=== PATIENT | female | born 1930 | race Caucasian/White ===

== ENCOUNTER 2018-12-21 05:04 | Inpatient (IN) ==
[2018-12-21] MEDS ORDERED: DILTIAZEM 50 MG/10 ML VIAL IV STA ×2 (06:15→07:25)
[2018-12-21] MEDS ORDERED: DILTIAZEM 50 MG/10 ML VIAL IV ONE (06:17)
[2018-12-21] MEDS ORDERED: dilTIAZem Drip 125 MG/125 ML PREMIX IV SCH (06:30)
[2018-12-21 06:36] LABS: CKMB % 6.7 %; Calcium 8.6 MG/DL (8.5-10.1); Osmolality,Calculated 271.5 MOS/KG (273-304); Troponin I 0.63 NG/ML (0.00-0.045)
[2018-12-21 06:40] LABS: Basophils % 0.4 % (0.0-0.8); Eosinophils % 0.4 % (0.00-10.9); Hematocrit 36.2 VOL% (35.7-47.0); Hemoglobin 11.7 GM/DL (12.0-16.0); Immature Granulocytes % 0.4 %; Immature Granulocytes Absolute 0.04 #; Lymphocytes # 2.3 10*3/uL (1.4-4.0); Lymphocytes % 24.5 % (21.3-54.2); Mean Corpuscular HGB Conc 32.3 GM/DL (32-36); Mean Corpuscular Volume 93.3 FL (87-102); Mean Platelet Volume 11.4 FL (9.6-12.0); Monocytes % 7.4 % (1.7-12.7); Neutrophils % 66.9 % (38.7-73.9); Platelet Count 257 T/CUMM (130-400); Red Blood Count 3.88 MC/CUMM (3.8-5.5); Red Cell Distribution Width 14.1 % (9.3-17.3); White Blood Count 9.3 T/CUMM (4-12)
[2018-12-21] MEDS ORDERED: NITROGLYCERIN SL 0.4 MG TABLET SL PRN (07:24)
[2018-12-21] MEDS ORDERED: ONDANSETRON 4 MG/2 ML VIAL IV STA (07:25)
[2018-12-21] MEDS ORDERED: MORPHINE 4 MG/1 ML VIAL IV STA (07:25)
[2018-12-21 09:33] LABS: Risk Ratio 2.63; Thyroid Stimulating Hormone 1.37 uIU/ml (0.358-3.74); VLDL CHOLESTEROL 21.8 MG/DL
[2018-12-21 10:08] LABS: Troponin I 0.698 NG/ML (0.00-0.045)
[2018-12-21] MEDS: cefTRIAXone 1,000 MG in SYRINGE 1 EACH IV SCH ×3 (11:40→12:02)
[2018-12-21] MEDS: AZITHROMYCIN INJ 500 MG in SODIUM CHLORIDE 0.9% 250 ML IV SCH (11:45)
[2018-12-21] MEDS ORDERED: FUROSEMIDE 40 MG/4 ML VIAL IV ONE (11:45)
[2018-12-21] MEDS ORDERED: KETOROLAC 30 MG/1 ML VIAL IV ONE (12:06)
[2018-12-21] MEDS: APIXABAN 5 MG TABLET PO SCH ×2 (12:48→21:40)
[2018-12-21] MEDS: ACETAMINOPHEN 325 MG TABLET PO SCH ×2 (12:49→21:40)
[2018-12-21] MEDS: ONDANSETRON 4 MG/2 ML VIAL IV PRN ×2 (12:52→16:20)
[2018-12-21 12:54] LABS: CKMB % 7.3 %
[2018-12-21 12:55] LABS: Troponin I 0.898 NG/ML (0.00-0.045)
[2018-12-21] MEDS: ALBUTEROL/IPRATROPIUM 3 ML NEB RESP TX SCH ×2 (14:00→18:13)
[2018-12-21] MEDS: GABAPENTIN 100 MG CAPSULE PO SCH ×2 (16:17→21:40)
[2018-12-21] MEDS: FUROSEMIDE 40 MG/4 ML VIAL IV SCH (16:25)
[2018-12-21] MEDS ORDERED: PROMETHAZINE 25 MG/1 ML VIAL IM PRN (16:31)
[2018-12-21] MEDS ORDERED: LISINOPRIL/HCTZ 10-12.5 MG TABLET PO SCH (17:00)
[2018-12-21] MEDS: CARVEDILOL 3.125 MG TABLET PO SCH ×2 (18:18→21:42)
[2018-12-22] MEDS: ALBUTEROL/IPRATROPIUM 3 ML NEB RESP TX SCH ×4 (00:22→19:40)
[2018-12-22] MEDS: CARVEDILOL 3.125 MG TABLET PO SCH ×4 (01:49→17:46)
[2018-12-22 05:13] LABS: Basophils % 0.2 % (0.0-0.8); Eosinophils # 0.1 10*3/uL (0.0-0.87); Eosinophils % 0.8 % (0.00-10.9); Hematocrit 33.7 VOL% (35.7-47.0); Hemoglobin 10.6 GM/DL (12.0-16.0); Immature Granulocytes % 0.2 %; Immature Granulocytes Absolute 0.02 #; Lymphocytes # 3.1 10*3/uL (1.4-4.0); Lymphocytes % 36.4 % (21.3-54.2); Mean Corpuscular HGB Conc 31.5 GM/DL (32-36); Mean Corpuscular Volume 96.6 FL (87-102); Mean Platelet Volume 10.8 FL (9.6-12.0); Monocytes % 9.8 % (1.7-12.7); Neutrophils % 52.6 % (38.7-73.9); Platelet Count 193 T/CUMM (130-400); Red Blood Count 3.49 MC/CUMM (3.8-5.5); Red Cell Distribution Width 14.4 % (9.3-17.3); White Blood Count 8.6 T/CUMM (4-12)
[2018-12-22 05:15] LABS: INR 1.1; PT Patient Result 12.2 SECS
[2018-12-22] MEDS ORDERED: dilTIAZem Drip 125 MG/125 ML PREMIX IV ONE (05:23)
[2018-12-22] MEDS: dilTIAZem Drip 125 MG/125 ML PREMIX IV SCH ×2 (05:30→06:30)
[2018-12-22] MEDS ORDERED: FUROSEMIDE 40 MG/4 ML VIAL IV ONE (05:31)
[2018-12-22 05:36] LABS: Calcium 8.3 MG/DL (8.5-10.1)
[2018-12-22] MEDS ORDERED: AMIODARONE 150 MG/3 ML VIAL ONE (06:02)
[2018-12-22] MEDS ORDERED: AMIODARONE 450 MG/9 ML VIAL IV ONE (06:03)
[2018-12-22] MEDS ORDERED: AMIODARONE INJ 150 MG in DEXTROSE 5% 100 ML IV ONE (06:06)
[2018-12-22] MEDS ORDERED: ETOMIDATE 20 MG/10 ML VIAL IV ONE ×2 (06:27→06:33)
[2018-12-22] MEDS ORDERED: VECURONIUM 10 MG VIAL IV ONE ×2 (06:27→06:36)
[2018-12-22] MEDS ORDERED: PROPOFOL 1,000 MG/100 ML BOTTLE IV SCH (07:00)
[2018-12-22 07:48] LABS: ABG Base Excess -6.6 MMOL/L (-2.5-2.5); ABG Oxygen Saturation 95.4 % (95-100); ABG PCO2 42.2 MM HG (35-48); ABG PH 7.281 (7.35-7.45); ABG PO2 90.5 MM HG (80-95); ABG TCO2 18.1 MMOL/L (23-27)
[2018-12-22 08:41] LABS: Amorphous Crystals,Urine Few /HPF (Few); Apearance,Urine Slightly Hazy (Clear); Bacteria,Urine Few /HPF (Few); Bilirubin,Urine Negative (Negative); Blood, Urine Large mg/dL (Negative); Glucose,Urine (UA) Negative (Negative); Hyaline Casts,Urine 8 /LPF (0-3); Ketones,Urine Negative (Negative); Mucus,Urine Occasional /LPF (Occasional); Nitrite,Urine Negative (Negative); Protein,Urine 30 MG/DL; RBC,Urine 337 /HPF (0-4); Squamous Epithelial Cell,Urine Occasional /HPF (0-10); Urine Color Yellow (Yellow); Urine Specific Gravity 1.013 (1.001-1.035); Urine Urobilinogen < 2.0 EU/DL (0.2-1.0); WBC,Urine 12 /HPF (0-6)
[2018-12-22] MEDS ORDERED: methylPREDNISolone 4 MG TABLET PO SCH (09:00)
[2018-12-22] MEDS: PANTOPRAZOLE 40 MG TABLET PO SCH (10:27)
[2018-12-22] MEDS: GABAPENTIN 100 MG CAPSULE PO SCH ×3 (10:27→21:30)
[2018-12-22] MEDS: APIXABAN 5 MG TABLET PO SCH ×2 (10:28→21:30)
[2018-12-22] MEDS: FUROSEMIDE 40 MG/4 ML VIAL IV SCH ×2 (11:11→16:01)
[2018-12-22] MEDS: SPIRONOLACTONE 25 MG TABLET PO SCH ×2 (12:16→21:30)
[2018-12-22] MEDS: cefTRIAXone 1,000 MG in SYRINGE 1 EACH IV SCH (12:16)
[2018-12-22] MEDS: MIDAZOLAM 100 MG in SODIUM CHLORIDE 0.9% 80 ML IV PRN (12:16)
[2018-12-22] MEDS: fentaNYL INJ 1,250 MCG in SODIUM CHLORIDE 0.9% 225 ML IV PRN (12:18)
[2018-12-22] MEDS: AZITHROMYCIN INJ 500 MG in SODIUM CHLORIDE 0.9% 250 ML IV SCH (13:27)
[2018-12-22] MEDS: ASPIRIN CHEW 81 MG TABLET PO SCH (13:45)
[2018-12-22] MEDS: AMIODARONE 200 MG TABLET PO SCH ×2 (13:45→20:48)
[2018-12-22] MEDS: PHENYLEPHRINE DRIP 40 MG/250 ML PREMIX IV PRN (17:32)
[2018-12-22] MEDS: methylPREDNISolone SOD SUC 40 MG/1 ML VIAL IV SCH (18:03)
[2018-12-22] MEDS: AMIODARONE INJ 450 MG in DEXTROSE 5% 241 ML IV SCH (18:48)
[2018-12-23] MEDS: ALBUTEROL/IPRATROPIUM 3 ML NEB RESP TX SCH ×4 (01:12→20:23)
[2018-12-23] MEDS: methylPREDNISolone SOD SUC 40 MG/1 ML VIAL IV SCH ×3 (03:38→17:45)
[2018-12-23 04:09] LABS: ABG Base Excess -0.7 MMOL/L (-2.5-2.5); ABG HCO3 23.9 MMOL/L (20-26); ABG Oxygen Saturation 99.8 % (95-100); ABG PCO2 32.4 MM HG (35-48); ABG PH 7.451 (7.35-7.45); ABG TCO2 20.2 MMOL/L (23-27); Pt O2 Delivery Device Ventilator
[2018-12-23 05:40] LABS: Basophils % 0.2 % (0.0-0.8); Eosinophils % 0.2 % (0.00-10.9); Hemoglobin 11.3 GM/DL (12.0-16.0); Immature Granulocytes % 0.5 %; Immature Granulocytes Absolute 0.07 #; Lymphocytes # 2.6 10*3/uL (1.4-4.0); Lymphocytes % 20.4 % (21.3-54.2); Mean Corpuscular HGB Conc 31.4 GM/DL (32-36); Mean Corpuscular Volume 95.7 FL (87-102); Mean Platelet Volume 11.5 FL (9.6-12.0); Monocytes % 9.9 % (1.7-12.7); Neutrophils % 68.8 % (38.7-73.9); Platelet Count 189 T/CUMM (130-400); Red Blood Count 3.76 MC/CUMM (3.8-5.5); Red Cell Distribution Width 14.5 % (9.3-17.3); White Blood Count 12.8 T/CUMM (4-12)
[2018-12-23 06:11] LABS: Calcium 8.2 MG/DL (8.5-10.1); Osmolality,Calculated 275.1 MOS/KG (273-304)
[2018-12-23] MEDS ORDERED: DILTIAZEM 25 MG/5 ML VIAL IV ONE (08:10)
[2018-12-23 08:30] LABS: Troponin I 0.769 NG/ML (0.00-0.045)
[2018-12-23] MEDS ORDERED: DILTIAZEM 50 MG/10 ML VIAL IV STA (08:41)
[2018-12-23] MEDS: AZITHROMYCIN INJ 500 MG in SODIUM CHLORIDE 0.9% 250 ML IV SCH (09:41)
[2018-12-23] MEDS: ASPIRIN CHEW 81 MG TABLET PO SCH (09:42)
[2018-12-23] MEDS: APIXABAN 5 MG TABLET PO SCH ×2 (09:42→22:09)
[2018-12-23] MEDS: AMIODARONE 200 MG TABLET PO SCH ×2 (09:42→22:09)
[2018-12-23] MEDS: PANTOPRAZOLE 40 MG TABLET PO SCH (09:42)
[2018-12-23] MEDS: GABAPENTIN 100 MG CAPSULE PO SCH ×3 (09:42→22:09)
[2018-12-23] MEDS: SPIRONOLACTONE 25 MG TABLET PO SCH (09:42)
[2018-12-23] MEDS: AMIODARONE INJ 450 MG in DEXTROSE 5% 241 ML IV SCH (09:43)
[2018-12-23] MEDS: FUROSEMIDE 40 MG/4 ML VIAL IV SCH ×2 (09:43→16:50)
[2018-12-23] MEDS: cefTRIAXone 1,000 MG in SYRINGE 1 EACH IV SCH (11:57)
[2018-12-23] MEDS: PHENYLEPHRINE DRIP 40 MG/250 ML PREMIX IV PRN (18:07)
[2018-12-24] MEDS: ALBUTEROL/IPRATROPIUM 3 ML NEB RESP TX SCH ×4 (00:59→19:47)
[2018-12-24] MEDS: methylPREDNISolone SOD SUC 40 MG/1 ML VIAL IV SCH ×4 (02:55→21:13)
[2018-12-24 04:33] LABS: ABG Base Excess 2.1 MMOL/L (-2.5-2.5); ABG HCO3 24.7 MMOL/L (20-26); ABG Oxygen Saturation 99.2 % (95-100); ABG PCO2 31.7 MM HG (35-48); ABG PH 7.509 (7.35-7.45); ABG PO2 292.7 MM HG (80-95); ABG TCO2 25.6 MMOL/L (23-27)
[2018-12-24 05:01] LABS: Hemoglobin 10.9 GM/DL (12.0-16.0); Immature Granulocytes % 0.5 %; Immature Granulocytes Absolute 0.05 #; Lymphocytes # 1.2 10*3/uL (1.4-4.0); Lymphocytes % 11.2 % (21.3-54.2); Mean Corpuscular Volume 91.4 FL (87-102); Mean Platelet Volume 10.9 FL (9.6-12.0); Monocytes % 4.7 % (1.7-12.7); Neutrophils % 83.6 % (38.7-73.9); Platelet Count 264 T/CUMM (130-400); Red Blood Count 3.61 MC/CUMM (3.8-5.5); Red Cell Distribution Width 14.5 % (9.3-17.3); White Blood Count 10.8 T/CUMM (4-12)
[2018-12-24 05:31] LABS: Calcium 8.1 MG/DL (8.5-10.1); Osmolality,Calculated 285.7 MOS/KG (273-304)
[2018-12-24] MEDS ORDERED: POTASSIUM CHLORIDE 20 MEQ/15 ML UDCUP PER TUBE ONE (07:40)
[2018-12-24] MEDS: FUROSEMIDE 40 MG/4 ML VIAL IV SCH ×2 (08:55→15:45)
[2018-12-24] MEDS: APIXABAN 5 MG TABLET PO SCH ×2 (08:59→21:13)
[2018-12-24] MEDS: ASPIRIN CHEW 81 MG TABLET PO SCH (08:59)
[2018-12-24] MEDS: GABAPENTIN 100 MG CAPSULE PO SCH ×3 (09:01→21:13)
[2018-12-24] MEDS: SPIRONOLACTONE 25 MG TABLET PO SCH (09:01)
[2018-12-24] MEDS: PANTOPRAZOLE 40 MG TABLET PO SCH (09:02)
[2018-12-24] MEDS: AZITHROMYCIN INJ 500 MG in SODIUM CHLORIDE 0.9% 250 ML IV SCH (09:04)
[2018-12-24] MEDS: AMIODARONE 200 MG TABLET PO SCH ×2 (09:05→21:13)
[2018-12-24] MEDS: POTASSIUM CHLORIDE 20 MEQ/15 ML UDCUP PER TUBE SCH (09:23)
[2018-12-24] MEDS: LANSOPRAZOLE ODT 30 MG TABLET PER TUBE SCH (09:24)
[2018-12-24] MEDS ORDERED: GLUCAGON 1 MG VIAL IM PRN (13:04)
[2018-12-24] MEDS ORDERED: DEXTROSE 50% 25 GM/50 ML SYRINGE IV PRN (13:04)
[2018-12-24] MEDS: cefTRIAXone 1,000 MG in SYRINGE 1 EACH IV SCH (13:25)
[2018-12-24] MEDS: MIDAZOLAM 100 MG in SODIUM CHLORIDE 0.9% 80 ML IV PRN (13:45)
[2018-12-24] MEDS: MEROPENEM 500 MG in SODIUM CHLORIDE 0.9% 100 ML IV SCH (15:44)
[2018-12-24] MEDS ORDERED: AMIODARONE INJ 150 MG in DEXTROSE 5% 100 ML IV PRN (16:13)
[2018-12-24] MEDS: AMIODARONE INJ 450 MG in DEXTROSE 5% 241 ML IV SCH (16:16)
[2018-12-24] MEDS: PHENYLEPHRINE DRIP 40 MG/250 ML PREMIX IV PRN (20:50)
[2018-12-25] MEDS: ALBUTEROL/IPRATROPIUM 3 ML NEB RESP TX SCH ×4 (01:00→19:48)
[2018-12-25] MEDS: MEROPENEM 500 MG in SODIUM CHLORIDE 0.9% 100 ML IV SCH ×2 (02:45→15:15)
[2018-12-25 02:53] LABS: ABG Base Excess 2.8 MMOL/L (-2.5-2.5); ABG Oxygen Saturation 99.7 % (95-100); ABG PCO2 33.2 MM HG (35-48); ABG PH 7.497 (7.35-7.45); ABG TCO2 22.9 MMOL/L (23-27); Allen Test Positive; Pt O2 Delivery Device Ventilator
[2018-12-25 06:25] LABS: Basophils % 0.1 % (0.0-0.8); Hematocrit 35.2 VOL% (35.7-47.0); Hemoglobin 10.9 GM/DL (12.0-16.0); Immature Granulocytes % 0.5 %; Immature Granulocytes Absolute 0.05 #; Lymphocytes # 1.1 10*3/uL (1.4-4.0); Lymphocytes % 9.6 % (21.3-54.2); Mean Corpuscular Volume 95.4 FL (87-102); Mean Platelet Volume 10.7 FL (9.6-12.0); Monocytes % 4.8 % (1.7-12.7); Platelet Count 283 T/CUMM (130-400); Red Blood Count 3.69 MC/CUMM (3.8-5.5); Red Cell Distribution Width 14.9 % (9.3-17.3)
[2018-12-25 06:36] LABS: Calcium 8.5 MG/DL (8.5-10.1); Osmolality,Calculated 293.7 MOS/KG (273-304)
[2018-12-25] MEDS: SPIRONOLACTONE 25 MG TABLET PO SCH (08:33)
[2018-12-25] MEDS: AMIODARONE 200 MG TABLET PO SCH ×2 (08:33→21:26)
[2018-12-25] MEDS: GABAPENTIN 100 MG CAPSULE PO SCH ×3 (08:34→21:26)
[2018-12-25] MEDS: LANSOPRAZOLE ODT 30 MG TABLET PER TUBE SCH (08:34)
[2018-12-25] MEDS: POTASSIUM CHLORIDE 20 MEQ/15 ML UDCUP PER TUBE SCH (08:34)
[2018-12-25] MEDS: APIXABAN 5 MG TABLET PO SCH ×2 (08:34→21:26)
[2018-12-25] MEDS: ASPIRIN CHEW 81 MG TABLET PO SCH (08:34)
[2018-12-25] MEDS: FUROSEMIDE 40 MG/4 ML VIAL IV SCH ×2 (08:38→15:15)
[2018-12-25] MEDS: methylPREDNISolone SOD SUC 40 MG/1 ML VIAL IV SCH ×2 (08:39→21:26)
[2018-12-25] MEDS: MIDAZOLAM 100 MG in SODIUM CHLORIDE 0.9% 80 ML IV PRN (14:35)
[2018-12-26] MEDS: ALBUTEROL/IPRATROPIUM 3 ML NEB RESP TX SCH ×4 (01:06→20:46)
[2018-12-26] MEDS: MEROPENEM 500 MG in SODIUM CHLORIDE 0.9% 100 ML IV SCH ×2 (02:36→14:04)
[2018-12-26 04:25] LABS: ABG HCO3 27.2 MMOL/L (20-26); ABG Oxygen Saturation 99.2 % (95-100); ABG PCO2 32.3 MM HG (35-48); ABG PH 7.543 (7.35-7.45); ABG PO2 192.2 MM HG (80-95); ABG TCO2 28.2 MMOL/L (23-27); Allen Test Positive; Pt O2 Delivery Device Ventilator
[2018-12-26 05:17] LABS: Basophils % 0.1 % (0.0-0.8); Hematocrit 35.7 VOL% (35.7-47.0); Immature Granulocytes % 0.6 %; Immature Granulocytes Absolute 0.08 #; Lymphocytes # 1.2 10*3/uL (1.4-4.0); Lymphocytes % 8.9 % (21.3-54.2); Mean Corpuscular HGB Conc 30.8 GM/DL (32-36); Mean Corpuscular Volume 95.7 FL (87-102); Mean Platelet Volume 10.4 FL (9.6-12.0); Neutrophils % 86.4 % (38.7-73.9); Platelet Count 272 T/CUMM (130-400); Red Blood Count 3.73 MC/CUMM (3.8-5.5); Red Cell Distribution Width 14.9 % (9.3-17.3); White Blood Count 13.1 T/CUMM (4-12)
[2018-12-26 05:29] LABS: INR 1.2; Partial Thromboplastin Time 27.8 SECS (0-40)
[2018-12-26 05:32] LABS: Calcium 8.5 MG/DL (8.5-10.1); Osmolality,Calculated 299.5 MOS/KG (273-304)
[2018-12-26 05:35] LABS: Prealbumin 26.4 MG/DL (20-40)
[2018-12-26] MEDS: methylPREDNISolone SOD SUC 40 MG/1 ML VIAL IV SCH ×2 (11:02→21:28)
[2018-12-26] MEDS: FUROSEMIDE 40 MG/4 ML VIAL IV SCH ×2 (11:02→16:20)
[2018-12-26] MEDS: LANSOPRAZOLE ODT 30 MG TABLET PER TUBE SCH (11:03)
[2018-12-26] MEDS: AMIODARONE 200 MG TABLET PO SCH ×2 (11:03→21:28)
[2018-12-26] MEDS: GABAPENTIN 100 MG CAPSULE PO SCH ×3 (11:03→21:28)
[2018-12-26] MEDS: APIXABAN 5 MG TABLET PO SCH ×2 (11:03→21:28)
[2018-12-26] MEDS: SPIRONOLACTONE 25 MG TABLET PO SCH (11:03)
[2018-12-26] MEDS: ASPIRIN CHEW 81 MG TABLET PO SCH (11:03)
[2018-12-26] MEDS: POTASSIUM CHLORIDE 20 MEQ/15 ML UDCUP PER TUBE SCH (11:04)
[2018-12-26] MEDS: fentaNYL INJ 1,250 MCG in SODIUM CHLORIDE 0.9% 225 ML IV PRN (11:55)
[2018-12-26] MEDS: MIDAZOLAM 100 MG in SODIUM CHLORIDE 0.9% 80 ML IV PRN (16:24)
[2018-12-27] MEDS: ALBUTEROL/IPRATROPIUM 3 ML NEB RESP TX SCH ×4 (02:23→18:50)
[2018-12-27] MEDS: MEROPENEM 500 MG in SODIUM CHLORIDE 0.9% 100 ML IV SCH ×2 (02:39→13:47)
[2018-12-27 04:09] LABS: ABG Base Excess 6.2 MMOL/L (-2.5-2.5); ABG HCO3 30.1 MMOL/L (20-26); ABG Oxygen Saturation 99.9 % (95-100); ABG PCO2 39.3 MM HG (35-48); ABG TCO2 26.4 MMOL/L (23-27)
[2018-12-27 06:14] LABS: Hematocrit 33.4 VOL% (35.7-47.0); Hemoglobin 10.3 GM/DL (12.0-16.0); Immature Granulocytes % 0.9 %; Immature Granulocytes Absolute 0.09 #; Lymphocytes # 0.7 10*3/uL (1.4-4.0); Lymphocytes % 7.3 % (21.3-54.2); Mean Corpuscular HGB Conc 30.8 GM/DL (32-36); Mean Corpuscular Volume 96.8 FL (87-102); Mean Platelet Volume 10.4 FL (9.6-12.0); Monocytes % 5.8 % (1.7-12.7); Platelet Count 209 T/CUMM (130-400); Red Blood Count 3.45 MC/CUMM (3.8-5.5); Red Cell Distribution Width 14.8 % (9.3-17.3)
[2018-12-27 06:30] LABS: Calcium 8.3 MG/DL (8.5-10.1); Osmolality,Calculated 305.1 MOS/KG (273-304)
[2018-12-27] MEDS: GABAPENTIN 100 MG CAPSULE PO SCH ×3 (08:32→21:40)
[2018-12-27] MEDS: POTASSIUM CHLORIDE 20 MEQ/15 ML UDCUP PER TUBE SCH (08:32)
[2018-12-27] MEDS: APIXABAN 5 MG TABLET PO SCH ×2 (08:33→21:40)
[2018-12-27] MEDS: AMIODARONE 200 MG TABLET PO SCH ×2 (08:33→21:40)
[2018-12-27] MEDS: SPIRONOLACTONE 25 MG TABLET PO SCH (08:33)
[2018-12-27] MEDS: ASPIRIN CHEW 81 MG TABLET PO SCH (08:33)
[2018-12-27] MEDS: LANSOPRAZOLE ODT 30 MG TABLET PER TUBE SCH (08:34)
[2018-12-27] MEDS: FUROSEMIDE 40 MG/4 ML VIAL IV SCH ×2 (08:34→15:47)
[2018-12-27] MEDS: methylPREDNISolone SOD SUC 40 MG/1 ML VIAL IV SCH ×2 (08:41→21:40)
[2018-12-28] MEDS: ALBUTEROL/IPRATROPIUM 3 ML NEB RESP TX SCH ×4 (01:48→20:00)
[2018-12-28] MEDS: MEROPENEM 500 MG in SODIUM CHLORIDE 0.9% 100 ML IV SCH ×2 (02:10→15:59)
[2018-12-28] MEDS: MIDAZOLAM 100 MG in SODIUM CHLORIDE 0.9% 80 ML IV PRN ×2 (02:11→22:40)
[2018-12-28 04:39] LABS: ABG Base Excess 9.5 MMOL/L (-2.5-2.5); ABG HCO3 32.5 MMOL/L (20-26); ABG Oxygen Saturation 98.7 % (95-100); ABG PCO2 37.6 MM HG (35-48); ABG PH 7.554 (7.35-7.45); ABG PO2 159.4 MM HG (80-95); ABG TCO2 33.6 MMOL/L (23-27); Allen Test Positive; Pt O2 Delivery Device Ventilator
[2018-12-28 05:26] LABS: Basophils % 0.1 % (0.0-0.8); Hematocrit 34.7 VOL% (35.7-47.0); Hemoglobin 10.5 GM/DL (12.0-16.0); Immature Granulocytes Absolute 0.11 #; Lymphocytes # 0.8 10*3/uL (1.4-4.0); Lymphocytes % 7.5 % (21.3-54.2); Mean Corpuscular HGB Conc 30.3 GM/DL (32-36); Mean Corpuscular Volume 98.9 FL (87-102); Mean Platelet Volume 10.5 FL (9.6-12.0); Monocytes % 6.5 % (1.7-12.7); Neutrophils % 84.9 % (38.7-73.9); Platelet Count 207 T/CUMM (130-400); Red Blood Count 3.51 MC/CUMM (3.8-5.5); Red Cell Distribution Width 14.8 % (9.3-17.3); White Blood Count 11.1 T/CUMM (4-12)
[2018-12-28 05:37] LABS: Calcium 8.2 MG/DL (8.5-10.1)
[2018-12-28] MEDS: FUROSEMIDE 40 MG/4 ML VIAL IV SCH ×2 (07:54→16:00)
[2018-12-28] MEDS: methylPREDNISolone SOD SUC 40 MG/1 ML VIAL IV SCH ×2 (08:02→22:00)
[2018-12-28] MEDS: GABAPENTIN 100 MG CAPSULE PO SCH ×3 (08:03→21:45)
[2018-12-28] MEDS: SPIRONOLACTONE 25 MG TABLET PO SCH (08:04)
[2018-12-28] MEDS: APIXABAN 5 MG TABLET PO SCH ×2 (08:04→21:45)
[2018-12-28] MEDS: ASPIRIN CHEW 81 MG TABLET PO SCH (08:04)
[2018-12-28] MEDS: AMIODARONE 200 MG TABLET PO SCH ×2 (08:04→21:45)
[2018-12-28] MEDS: LANSOPRAZOLE ODT 30 MG TABLET PER TUBE SCH (08:05)
[2018-12-28] MEDS: POTASSIUM CHLORIDE 20 MEQ/15 ML UDCUP PER TUBE SCH (08:05)
[2018-12-28] MEDS ORDERED: METOPROLOL TARTRATE 5 MG/5 ML VIAL IV ONE (08:44)
[2018-12-28] MEDS: CARVEDILOL 3.125 MG TABLET PO SCH ×3 (09:11→21:45)
[2018-12-29] MEDS: ALBUTEROL/IPRATROPIUM 3 ML NEB RESP TX SCH ×4 (01:09→19:16)
[2018-12-29] MEDS: MEROPENEM 500 MG in SODIUM CHLORIDE 0.9% 100 ML IV SCH ×2 (02:50→13:18)
[2018-12-29] MEDS: CARVEDILOL 3.125 MG TABLET PO SCH ×4 (03:53→20:10)
[2018-12-29 04:05] LABS: Basophils % 0.1 % (0.0-0.8); Hematocrit 31.6 VOL% (35.7-47.0); Hemoglobin 9.8 GM/DL (12.0-16.0); Immature Granulocytes % 0.7 %; Immature Granulocytes Absolute 0.09 #; Lymphocytes # 1.6 10*3/uL (1.4-4.0); Lymphocytes % 13.1 % (21.3-54.2); Mean Corpuscular Volume 98.1 FL (87-102); Mean Platelet Volume 10.4 FL (9.6-12.0); Monocytes % 8.2 % (1.7-12.7); Neutrophils % 77.9 % (38.7-73.9); Platelet Count 173 T/CUMM (130-400); Red Blood Count 3.22 MC/CUMM (3.8-5.5); Red Cell Distribution Width 14.6 % (9.3-17.3); White Blood Count 12.4 T/CUMM (4-12)
[2018-12-29 04:28] LABS: Calcium 8.2 MG/DL (8.5-10.1); Osmolality,Calculated 305.1 MOS/KG (273-304)
[2018-12-29] MEDS: POTASSIUM CHLORIDE 20 MEQ/15 ML UDCUP PER TUBE SCH (08:09)
[2018-12-29] MEDS: AMIODARONE 200 MG TABLET PO SCH ×2 (08:09→20:21)
[2018-12-29] MEDS: GABAPENTIN 100 MG CAPSULE PO SCH ×3 (08:09→20:22)
[2018-12-29] MEDS: LANSOPRAZOLE ODT 30 MG TABLET PER TUBE SCH (08:10)
[2018-12-29] MEDS: ASPIRIN CHEW 81 MG TABLET PO SCH (08:10)
[2018-12-29] MEDS: SPIRONOLACTONE 25 MG TABLET PO SCH (08:10)
[2018-12-29] MEDS: APIXABAN 5 MG TABLET PO SCH ×2 (08:10→20:21)
[2018-12-29] MEDS: FUROSEMIDE 40 MG/4 ML VIAL IV SCH ×2 (08:11→15:01)
[2018-12-29] MEDS: methylPREDNISolone SOD SUC 40 MG/1 ML VIAL IV SCH ×2 (08:11→20:21)
[2018-12-29] MEDS: ASCORBIC ACID 500 MG TABLET PO SCH ×2 (10:57→20:21)
[2018-12-29] MEDS: METOPROLOL TARTRATE 5 MG/5 ML VIAL IV PRN (15:25)
[2018-12-29] MEDS ORDERED: fentaNYL INJ 1,250 MCG in SODIUM CHLORIDE 0.9% 225 ML IV PRN (16:38)
[2018-12-29] MEDS: MIDAZOLAM 100 MG in SODIUM CHLORIDE 0.9% 80 ML IV PRN (22:49)
[2018-12-30] MEDS: ALBUTEROL/IPRATROPIUM 3 ML NEB RESP TX SCH ×4 (01:41→20:04)
[2018-12-30] MEDS ORDERED: DILTIAZEM 50 MG/10 ML VIAL IV ONE (03:10)
[2018-12-30] MEDS: MEROPENEM 500 MG in SODIUM CHLORIDE 0.9% 100 ML IV SCH ×2 (03:21→14:28)
[2018-12-30] MEDS: CARVEDILOL 3.125 MG TABLET PO SCH ×4 (03:21→20:03)
[2018-12-30] MEDS: dilTIAZem Drip 125 MG/125 ML PREMIX IV SCH (03:41)
[2018-12-30 04:16] LABS: Basophils % 0.1 % (0.0-0.8); Hemoglobin 10.7 GM/DL (12.0-16.0); Immature Granulocytes % 0.9 %; Immature Granulocytes Absolute 0.14 #; Lymphocytes # 0.9 10*3/uL (1.4-4.0); Lymphocytes % 5.9 % (21.3-54.2); Mean Corpuscular HGB Conc 31.5 GM/DL (32-36); Mean Corpuscular Volume 94.2 FL (87-102); Mean Platelet Volume 10.8 FL (9.6-12.0); Monocytes % 4.1 % (1.7-12.7); Platelet Count 208 T/CUMM (130-400); Red Blood Count 3.61 MC/CUMM (3.8-5.5); Red Cell Distribution Width 14.6 % (9.3-17.3); White Blood Count 15.8 T/CUMM (4-12)
[2018-12-30 04:48] LABS: Calcium 8.3 MG/DL (8.5-10.1); Osmolality,Calculated 305.3 MOS/KG (273-304)
[2018-12-30] MEDS ORDERED: DEXTROSE 50% 25 GM/50 ML SYRINGE IV PRN (07:16)
[2018-12-30] MEDS ORDERED: GLUCAGON 1 MG VIAL IM PRN (07:16)
[2018-12-30] MEDS: LANSOPRAZOLE ODT 30 MG TABLET PER TUBE SCH (09:14)
[2018-12-30] MEDS: AMIODARONE 200 MG TABLET PO SCH ×2 (09:14→20:25)
[2018-12-30] MEDS: POTASSIUM CHLORIDE 20 MEQ/15 ML UDCUP PER TUBE SCH (09:14)
[2018-12-30] MEDS: methylPREDNISolone SOD SUC 40 MG/1 ML VIAL IV SCH ×2 (09:15→20:25)
[2018-12-30] MEDS: ASCORBIC ACID 500 MG TABLET PO SCH ×2 (09:15→20:24)
[2018-12-30] MEDS: GABAPENTIN 100 MG CAPSULE PO SCH ×3 (09:15→20:25)
[2018-12-30] MEDS: ASPIRIN CHEW 81 MG TABLET PO SCH (09:15)
[2018-12-30] MEDS: APIXABAN 5 MG TABLET PO SCH ×2 (09:15→20:25)
[2018-12-30] MEDS: INSULIN GLARGINE 100 UNIT/ML SUBCUT SCH (09:16)
[2018-12-30] MEDS: FUROSEMIDE 40 MG/4 ML VIAL IV SCH ×2 (10:08→17:50)
[2018-12-30] MEDS: INSULIN LISPRO 100 UNIT/ML SUBCUT SCH ×2 (12:05→17:55)
[2018-12-30] MEDS ORDERED: POTASSIUM CHLORIDE 20 MEQ TABLET PO ONE (13:41)
[2018-12-30] MEDS: SPIRONOLACTONE 25 MG TABLET PO SCH (17:28)
[2018-12-30] MEDS: ACETAMINOPHEN 325 MG TABLET PO PRN (17:29)
[2018-12-31] MEDS: INSULIN LISPRO 100 UNIT/ML SUBCUT SCH ×4 (00:01→18:25)
[2018-12-31] MEDS: ALBUTEROL/IPRATROPIUM 3 ML NEB RESP TX SCH ×4 (00:26→19:41)
[2018-12-31] MEDS: CARVEDILOL 3.125 MG TABLET PO SCH ×4 (02:00→20:45)
[2018-12-31] MEDS: MEROPENEM 500 MG in SODIUM CHLORIDE 0.9% 100 ML IV SCH ×2 (02:32→14:24)
[2018-12-31 03:49] LABS: ABG Base Excess 10.1 MMOL/L (-2.5-2.5); ABG HCO3 33.8 MMOL/L (20-26); ABG Oxygen Saturation 99.6 % (95-100); ABG PCO2 41.9 MM HG (35-48); ABG PH 7.518 (7.35-7.45); ABG TCO2 30.3 MMOL/L (23-27); Allen Test Positive; Pt O2 Delivery Device Ventilator
[2018-12-31] MEDS: MIDAZOLAM 100 MG in SODIUM CHLORIDE 0.9% 80 ML IV PRN (04:36)
[2018-12-31] MEDS: dilTIAZem Drip 125 MG/125 ML PREMIX IV SCH (04:39)
[2018-12-31 05:07] LABS: Basophils % 0.2 % (0.0-0.8); Hematocrit 33.8 VOL% (35.7-47.0); Hemoglobin 10.4 GM/DL (12.0-16.0); Immature Granulocytes Absolute 0.19 #; Mean Corpuscular HGB Conc 30.8 GM/DL (32-36); Mean Corpuscular Volume 97.1 FL (87-102); Mean Platelet Volume 11.2 FL (9.6-12.0); Monocytes % 4.6 % (1.7-12.7); Neutrophils % 89.2 % (38.7-73.9); Platelet Count 192 T/CUMM (130-400); Red Blood Count 3.48 MC/CUMM (3.8-5.5); Red Cell Distribution Width 14.4 % (9.3-17.3); White Blood Count 19.3 T/CUMM (4-12)
[2018-12-31 05:30] LABS: Calcium 8.3 MG/DL (8.5-10.1)
[2018-12-31 05:35] LABS: Prealbumin 31.9 MG/DL (20-40)
[2018-12-31] MEDS: FUROSEMIDE 40 MG/4 ML VIAL IV SCH (08:52)
[2018-12-31] MEDS: APIXABAN 5 MG TABLET PO SCH ×2 (08:53→20:45)
[2018-12-31] MEDS: GABAPENTIN 100 MG CAPSULE PO SCH ×3 (08:53→20:45)
[2018-12-31] MEDS: ASPIRIN CHEW 81 MG TABLET PO SCH (08:53)
[2018-12-31] MEDS: SPIRONOLACTONE 25 MG TABLET PO SCH (08:53)
[2018-12-31] MEDS: AMIODARONE 200 MG TABLET PO SCH ×2 (08:53→20:44)
[2018-12-31] MEDS: LANSOPRAZOLE ODT 30 MG TABLET PER TUBE SCH (08:54)
[2018-12-31] MEDS: methylPREDNISolone SOD SUC 40 MG/1 ML VIAL IV SCH ×2 (08:54→20:45)
[2018-12-31] MEDS: INSULIN GLARGINE 100 UNIT/ML SUBCUT SCH (08:54)
[2018-12-31] MEDS: POTASSIUM CHLORIDE 20 MEQ/15 ML UDCUP PER TUBE SCH (08:54)
[2018-12-31] MEDS: ASCORBIC ACID 500 MG TABLET PO SCH ×2 (08:55→20:44)
[2018-12-31] MEDS: ACETAMINOPHEN 325 MG TABLET PO PRN (16:38)
[2018-12-31] MEDS: ROSUVASTATIN 20 MG TABLET PO SCH (20:44)
[2019-01-01] MEDS: INSULIN LISPRO 100 UNIT/ML SUBCUT SCH ×4 (00:18→18:22)
[2019-01-01] MEDS: ALBUTEROL/IPRATROPIUM 3 ML NEB RESP TX SCH ×4 (00:42→19:21)
[2019-01-01] MEDS: MEROPENEM 500 MG in SODIUM CHLORIDE 0.9% 100 ML IV SCH ×2 (01:18→14:00)
[2019-01-01] MEDS: CARVEDILOL 3.125 MG TABLET PO SCH ×4 (02:19→20:11)
[2019-01-01] MEDS: dilTIAZem Drip 125 MG/125 ML PREMIX IV SCH (02:30)
[2019-01-01 04:14] LABS: ABG Base Excess 9.7 MMOL/L (-2.5-2.5); ABG HCO3 32.5 MMOL/L (20-26); ABG Oxygen Saturation 98.8 % (95-100); ABG PH 7.561 (7.35-7.45); ABG PO2 190.4 MM HG (80-95); ABG TCO2 33.6 MMOL/L (23-27); Allen Test Positive; Pt O2 Delivery Device Ventilator
[2019-01-01 04:28] LABS: INR 1.1; PT Patient Result 12.1 SECS; Partial Thromboplastin Time 23.5 SECS (0-40)
[2019-01-01 04:30] LABS: Basophils % 0.1 % (0.0-0.8); Hematocrit 32.6 VOL% (35.7-47.0); Hemoglobin 10.2 GM/DL (12.0-16.0); Immature Granulocytes % 0.9 %; Immature Granulocytes Absolute 0.13 #; Lymphocytes # 1.2 10*3/uL (1.4-4.0); Lymphocytes % 8.7 % (21.3-54.2); Mean Corpuscular HGB Conc 31.3 GM/DL (32-36); Mean Corpuscular Volume 97.6 FL (87-102); Mean Platelet Volume 11.4 FL (9.6-12.0); Monocytes % 2.8 % (1.7-12.7); Neutrophils % 87.5 % (38.7-73.9); Platelet Count 170 T/CUMM (130-400); Red Blood Count 3.34 MC/CUMM (3.8-5.5); Red Cell Distribution Width 14.4 % (9.3-17.3); White Blood Count 14.1 T/CUMM (4-12)
[2019-01-01 04:50] LABS: Calcium 8.3 MG/DL (8.5-10.1); Osmolality,Calculated 311.8 MOS/KG (273-304)
[2019-01-01] MEDS: MIDAZOLAM 100 MG in SODIUM CHLORIDE 0.9% 80 ML IV PRN (04:54)
[2019-01-01] MEDS: methylPREDNISolone SOD SUC 40 MG/1 ML VIAL IV SCH ×2 (08:05→20:10)
[2019-01-01] MEDS: POTASSIUM CHLORIDE 20 MEQ/15 ML UDCUP PER TUBE SCH (08:06)
[2019-01-01] MEDS: ASCORBIC ACID 500 MG TABLET PO SCH ×2 (08:06→20:10)
[2019-01-01] MEDS: ASPIRIN CHEW 81 MG TABLET PO SCH (08:07)
[2019-01-01] MEDS: GABAPENTIN 100 MG CAPSULE PO SCH ×3 (08:07→20:11)
[2019-01-01] MEDS: AMIODARONE 200 MG TABLET PO SCH ×2 (08:07→20:11)
[2019-01-01] MEDS: APIXABAN 5 MG TABLET PO SCH ×2 (08:07→20:11)
[2019-01-01] MEDS: LANSOPRAZOLE ODT 30 MG TABLET PER TUBE SCH (08:08)
[2019-01-01] MEDS: INSULIN GLARGINE 100 UNIT/ML SUBCUT SCH (08:09)
[2019-01-01] MEDS: SPIRONOLACTONE 25 MG TABLET PO SCH (08:14)
[2019-01-01] MEDS: DEXTROSE 5% NACL 0.45% 1,000 ML IV SCH (09:29)
[2019-01-01] MEDS: DESITIN 4OZ/NYSTATIN 15 GRAM MIXTURE PASTE TOP SCH ×2 (11:20→20:13)
[2019-01-01] MEDS: ROSUVASTATIN 20 MG TABLET PO SCH (20:11)
[2019-01-02] MEDS: INSULIN LISPRO 100 UNIT/ML SUBCUT SCH ×4 (00:24→18:28)
[2019-01-02] MEDS: MIDAZOLAM 100 MG in SODIUM CHLORIDE 0.9% 80 ML IV PRN ×2 (01:27→21:51)
[2019-01-02] MEDS: MEROPENEM 500 MG in SODIUM CHLORIDE 0.9% 100 ML IV SCH ×2 (02:11→15:01)
[2019-01-02] MEDS: CARVEDILOL 3.125 MG TABLET PO SCH ×4 (02:11→20:21)
[2019-01-02] MEDS: ALBUTEROL/IPRATROPIUM 3 ML NEB RESP TX SCH ×4 (02:29→19:05)
[2019-01-02] MEDS: dilTIAZem Drip 125 MG/125 ML PREMIX IV SCH (02:32)
[2019-01-02 04:15] LABS: ABG Base Excess 5.2 MMOL/L (-2.5-2.5); ABG HCO3 29.2 MMOL/L (20-26); ABG Oxygen Saturation 99.6 % (95-100); ABG TCO2 26.2 MMOL/L (23-27); Allen Test Positive; Pt O2 Delivery Device Ventilator
[2019-01-02 04:57] LABS: Basophils % 0.1 % (0.0-0.8); Hematocrit 31.1 VOL% (35.7-47.0); Hemoglobin 9.8 GM/DL (12.0-16.0); Immature Granulocytes % 0.8 %; Immature Granulocytes Absolute 0.12 #; Lymphocytes % 6.6 % (21.3-54.2); Mean Corpuscular HGB Conc 31.5 GM/DL (32-36); Mean Corpuscular Volume 95.7 FL (87-102); Mean Platelet Volume 11.6 FL (9.6-12.0); Monocytes % 4.4 % (1.7-12.7); Neutrophils % 88.1 % (38.7-73.9); Platelet Count 161 T/CUMM (130-400); Red Blood Count 3.25 MC/CUMM (3.8-5.5); White Blood Count 15.3 T/CUMM (4-12)
[2019-01-02 05:02] LABS: Calcium 8.5 MG/DL (8.5-10.1); Osmolality,Calculated 311.8 MOS/KG (273-304)
[2019-01-02] MEDS: DEXTROSE 5% NACL 0.45% 1,000 ML IV SCH (05:51)
[2019-01-02] MEDS: GABAPENTIN 100 MG CAPSULE PO SCH ×3 (08:00→20:20)
[2019-01-02] MEDS: APIXABAN 5 MG TABLET PO SCH ×2 (08:00→20:25)
[2019-01-02] MEDS: ASCORBIC ACID 500 MG TABLET PO SCH ×2 (08:00→20:20)
[2019-01-02] MEDS: POTASSIUM CHLORIDE 20 MEQ/15 ML UDCUP PER TUBE SCH (08:00)
[2019-01-02] MEDS: AMIODARONE 200 MG TABLET PO SCH ×2 (08:00→20:21)
[2019-01-02] MEDS: ASPIRIN CHEW 81 MG TABLET PO SCH (08:00)
[2019-01-02] MEDS: SPIRONOLACTONE 25 MG TABLET PO SCH (08:01)
[2019-01-02] MEDS: LANSOPRAZOLE ODT 30 MG TABLET PER TUBE SCH (08:01)
[2019-01-02] MEDS: methylPREDNISolone SOD SUC 40 MG/1 ML VIAL IV SCH ×2 (08:01→20:21)
[2019-01-02] MEDS: DESITIN 4OZ/NYSTATIN 15 GRAM MIXTURE PASTE TOP SCH ×2 (08:06→20:25)
[2019-01-02] MEDS: INSULIN GLARGINE 100 UNIT/ML SUBCUT SCH (08:06)
[2019-01-02] MEDS: METOPROLOL TARTRATE 5 MG/5 ML VIAL IV PRN (09:35)
[2019-01-02] MEDS ORDERED: INSULIN GLARGINE 100 UNIT/ML SUBCUT ONE (11:00)
[2019-01-02 11:01] LABS: ABG Base Excess 4.6 MMOL/L (-2.5-2.5); ABG HCO3 28.6 MMOL/L (20-26); ABG Oxygen Saturation 98.6 % (95-100); ABG PCO2 39.9 MM HG (35-48); ABG PH 7.473 (7.35-7.45); ABG PO2 175.9 MM HG (80-95); ABG TCO2 29.8 MMOL/L (23-27); Pt O2 Delivery Device Ventilator
[2019-01-02] MEDS: ROSUVASTATIN 20 MG TABLET PO SCH (20:21)
[2019-01-03] MEDS: INSULIN LISPRO 100 UNIT/ML SUBCUT SCH ×4 (00:26→18:26)
[2019-01-03] MEDS: ALBUTEROL/IPRATROPIUM 3 ML NEB RESP TX SCH ×2 (01:00→07:13)
[2019-01-03] MEDS: DEXTROSE 5% NACL 0.45% 1,000 ML IV SCH ×2 (01:24→21:31)
[2019-01-03] MEDS: MEROPENEM 500 MG in SODIUM CHLORIDE 0.9% 100 ML IV SCH ×2 (02:54→13:36)
[2019-01-03] MEDS: CARVEDILOL 3.125 MG TABLET PO SCH ×2 (02:54→08:42)
[2019-01-03] MEDS: dilTIAZem Drip 125 MG/125 ML PREMIX IV SCH (03:06)
[2019-01-03 03:34] LABS: Allen Test Positive; Pt O2 Delivery Device Ventilator
[2019-01-03 03:35] LABS: ABG Base Excess 4.5 MMOL/L (-2.5-2.5); ABG HCO3 28.5 MMOL/L (20-26); ABG Oxygen Saturation 99.7 % (95-100); ABG PCO2 39.4 MM HG (35-48); ABG PH 7.468 (7.35-7.45); ABG TCO2 25.9 MMOL/L (23-27)
[2019-01-03 04:12] LABS: Basophils % 0.2 % (0.0-0.8); Hematocrit 29.7 VOL% (35.7-47.0); Hemoglobin 9.1 GM/DL (12.0-16.0); Immature Granulocytes Absolute 0.19 #; Lymphocytes # 0.7 10*3/uL (1.4-4.0); Lymphocytes % 3.5 % (21.3-54.2); Mean Corpuscular HGB Conc 30.6 GM/DL (32-36); Mean Corpuscular Volume 97.7 FL (87-102); Mean Platelet Volume 11.5 FL (9.6-12.0); Monocytes % 3.7 % (1.7-12.7); Neutrophils % 91.6 % (38.7-73.9); Platelet Count 162 T/CUMM (130-400); Red Blood Count 3.04 MC/CUMM (3.8-5.5); White Blood Count 19.1 T/CUMM (4-12)
[2019-01-03 04:36] LABS: Calcium 8.3 MG/DL (8.5-10.1); Osmolality,Calculated 303.1 MOS/KG (273-304)
[2019-01-03 04:37] LABS: Lymphocytes 3 % (20-55); Platelet Estimate Adequate; Segmented Neutrophils 94 % (50-85); Total Cells Counted 100
[2019-01-03 04:38] LABS: Hypochromasia Slight; Polychromasia Few
[2019-01-03 04:52] LABS: Prealbumin 30.4 MG/DL (20-40)
[2019-01-03] MEDS: METOPROLOL TARTRATE 5 MG/5 ML VIAL IV PRN ×2 (05:57→21:22)
[2019-01-03 07:14] LABS: ABG Base Excess 3.5 MMOL/L (-2.5-2.5); ABG HCO3 27.6 MMOL/L (20-26); ABG Oxygen Saturation 98.5 % (95-100); ABG PCO2 46.1 MM HG (35-48); ABG PH 7.405 (7.35-7.45); ABG TCO2 26.1 MMOL/L (23-27); Allen Test Positive
[2019-01-03] MEDS: SPIRONOLACTONE 25 MG TABLET PO SCH (08:42)
[2019-01-03] MEDS: APIXABAN 5 MG TABLET PO SCH ×2 (08:42→20:04)
[2019-01-03] MEDS: AMIODARONE 200 MG TABLET PO SCH ×2 (08:42→20:04)
[2019-01-03] MEDS: ASCORBIC ACID 500 MG TABLET PO SCH ×2 (08:42→20:03)
[2019-01-03] MEDS: LANSOPRAZOLE ODT 30 MG TABLET PER TUBE SCH (08:42)
[2019-01-03] MEDS: GABAPENTIN 100 MG CAPSULE PO SCH ×3 (08:42→20:04)
[2019-01-03] MEDS: ASPIRIN CHEW 81 MG TABLET PO SCH (08:42)
[2019-01-03] MEDS: INSULIN GLARGINE 100 UNIT/ML SUBCUT SCH (08:43)
[2019-01-03] MEDS: POTASSIUM CHLORIDE 20 MEQ/15 ML UDCUP PER TUBE SCH (08:43)
[2019-01-03] MEDS: methylPREDNISolone SOD SUC 40 MG/1 ML VIAL IV SCH ×2 (08:43→20:04)
[2019-01-03] MEDS: DESITIN 4OZ/NYSTATIN 15 GRAM MIXTURE PASTE TOP SCH ×2 (09:30→20:04)
[2019-01-03 11:00] LABS: ABG Base Excess 4.8 MMOL/L (-2.5-2.5); ABG HCO3 28.7 MMOL/L (20-26); ABG Oxygen Saturation 97.4 % (95-100); ABG PCO2 39.5 MM HG (35-48); ABG PH 7.479 (7.35-7.45); ABG PO2 104.4 MM HG (80-95); ABG TCO2 29.9 MMOL/L (23-27); Allen Test Positive
[2019-01-03] MEDS: LEVALBUTEROL 1.25 MG/3 ML NEB RESP TX SCH ×3 (12:07→20:13)
[2019-01-03] MEDS: ROSUVASTATIN 20 MG TABLET PO SCH (20:04)
[2019-01-03] MEDS: CARVEDILOL 6.25 MG TABLET PO SCH (20:10)
[2019-01-04] MEDS ORDERED: LORazepam 2 MG/1 ML VIAL IV ONE (00:27)
[2019-01-04] MEDS: METOPROLOL TARTRATE 5 MG/5 ML VIAL IV PRN (00:30)
[2019-01-04] MEDS: INSULIN LISPRO 100 UNIT/ML SUBCUT SCH ×4 (00:31→18:23)
[2019-01-04] MEDS ORDERED: FUROSEMIDE 40 MG/4 ML VIAL IV ONE (01:02)
[2019-01-04] MEDS: LEVALBUTEROL 1.25 MG/3 ML NEB RESP TX SCH ×4 (01:22→19:14)
[2019-01-04] MEDS: MEROPENEM 500 MG in SODIUM CHLORIDE 0.9% 100 ML IV SCH (02:23)
[2019-01-04] MEDS: dilTIAZem Drip 125 MG/125 ML PREMIX IV SCH (02:36)
[2019-01-04 02:59] LABS: ABG Base Excess 2.7 MMOL/L (-2.5-2.5); ABG HCO3 26.7 MMOL/L (20-26); ABG Oxygen Saturation 94.9 % (95-100); ABG PO2 77.6 MM HG (80-95); ABG TCO2 24.2 MMOL/L (23-27); Allen Test Positive; Pt O2 Delivery Device Simple Mask
[2019-01-04 06:29] LABS: Calcium 8.3 MG/DL (8.5-10.1); Osmolality,Calculated 306.5 MOS/KG (273-304)
[2019-01-04 06:32] LABS: Basophils # 0.1 10*3/uL (0.0-0.2); Basophils % 0.3 % (0.0-0.8); Hematocrit 34.5 VOL% (35.7-47.0); Hemoglobin 10.8 GM/DL (12.0-16.0); Immature Granulocytes % 1.4 %; Immature Granulocytes Absolute 0.38 #; Lymphocytes # 0.7 10*3/uL (1.4-4.0); Lymphocytes % 2.6 % (21.3-54.2); Mean Corpuscular HGB Conc 31.3 GM/DL (32-36); Mean Corpuscular Volume 97.2 FL (87-102); Mean Platelet Volume 11.7 FL (9.6-12.0); Monocytes % 4.8 % (1.7-12.7); Neutrophils % 90.9 % (38.7-73.9); Platelet Count 216 T/CUMM (130-400); Red Blood Count 3.55 MC/CUMM (3.8-5.5)
[2019-01-04 06:51] LABS: Lymphocytes 6 % (20-55); Segmented Neutrophils 93 % (50-85); Total Cells Counted 100
[2019-01-04 06:52] LABS: Hypochromasia 1+; Platelet Estimate Adequate
[2019-01-04] MEDS: ALBUTEROL/IPRATROPIUM 3 ML NEB RESP TX SCH (07:43)
[2019-01-04] MEDS: SPIRONOLACTONE 25 MG TABLET PO SCH (08:11)
[2019-01-04] MEDS: GABAPENTIN 100 MG CAPSULE PO SCH ×3 (08:11→21:30)
[2019-01-04] MEDS: ASCORBIC ACID 500 MG TABLET PO SCH ×2 (08:11→21:30)
[2019-01-04] MEDS: methylPREDNISolone SOD SUC 40 MG/1 ML VIAL IV SCH ×2 (08:12→21:31)
[2019-01-04] MEDS: AMIODARONE 200 MG TABLET PO SCH ×2 (08:12→21:30)
[2019-01-04] MEDS: APIXABAN 5 MG TABLET PO SCH ×2 (08:12→21:30)
[2019-01-04] MEDS: CARVEDILOL 6.25 MG TABLET PO SCH ×2 (08:12→21:30)
[2019-01-04] MEDS: ASPIRIN CHEW 81 MG TABLET PO SCH (08:12)
[2019-01-04] MEDS: LANSOPRAZOLE ODT 30 MG TABLET PER TUBE SCH (08:12)
[2019-01-04] MEDS: DESITIN 4OZ/NYSTATIN 15 GRAM MIXTURE PASTE TOP SCH ×2 (08:13→21:45)
[2019-01-04] MEDS: INSULIN GLARGINE 100 UNIT/ML SUBCUT SCH (08:13)
[2019-01-04] MEDS: POTASSIUM CHLORIDE 20 MEQ/15 ML UDCUP PER TUBE SCH (08:13)
[2019-01-04] MEDS: FUROSEMIDE 20 MG/2 ML VIAL IV SCH ×3 (09:12→21:36)
[2019-01-04 09:35] LABS: Apearance,Urine CLOUDY (Clear); Bilirubin,Urine Negative (Negative); Blood, Urine Large mg/dL (Negative); Glucose,Urine (UA) 150 mg/dL (Negative); Hyaline Casts,Urine 8 /LPF (0-3); Ketones,Urine Negative (Negative); Mucus,Urine Occasional /LPF (Occasional); Nitrite,Urine Negative (Negative); Protein,Urine 30 MG/DL; RBC,Urine 1024 /HPF (0-4); Urine Color Yellow (Yellow); Urine Specific Gravity 1.017 (1.001-1.035); Urine Urobilinogen < 2.0 EU/DL (0.2-1.0); WBC,Urine 36 /HPF (0-6)
[2019-01-04] MEDS ORDERED: methylPREDNISolone SOD SUC 40 MG/1 ML VIAL IV SCH (20:00)
[2019-01-04] MEDS: DEXTROSE 5% NACL 0.45% 1,000 ML IV SCH (21:28)
[2019-01-04] MEDS: ROSUVASTATIN 20 MG TABLET PO SCH (21:30)
[2019-01-05] MEDS: INSULIN LISPRO 100 UNIT/ML SUBCUT SCH ×4 (00:18→17:51)
[2019-01-05] MEDS: LEVALBUTEROL 1.25 MG/3 ML NEB RESP TX SCH ×4 (00:30→19:13)
[2019-01-05 06:19] LABS: Basophils % 0.1 % (0.0-0.8); Hematocrit 29.5 VOL% (35.7-47.0); Hemoglobin 9.5 GM/DL (12.0-16.0); Immature Granulocytes % 1.4 %; Immature Granulocytes Absolute 0.36 #; Lymphocytes # 0.8 10*3/uL (1.4-4.0); Mean Corpuscular HGB Conc 32.2 GM/DL (32-36); Mean Corpuscular Volume 94.6 FL (87-102); Mean Platelet Volume 11.5 FL (9.6-12.0); Neutrophils % 90.5 % (38.7-73.9); Platelet Count 203 T/CUMM (130-400); Red Blood Count 3.12 MC/CUMM (3.8-5.5); Red Cell Distribution Width 14.3 % (9.3-17.3); White Blood Count 24.9 T/CUMM (4-12)
[2019-01-05 06:38] LABS: Calcium 8.1 MG/DL (8.5-10.1); Osmolality,Calculated 299.3 MOS/KG (273-304)
[2019-01-05 07:13] LABS: Anisocytosis Slight; Lymphocytes 2 % (20-55); Microcytosis Slight; Segmented Neutrophils 95 % (50-85); Total Cells Counted 100
[2019-01-05 07:14] LABS: Spherocytes Slight; Stomatocytes Slight
[2019-01-05 07:15] LABS: Platelet Estimate Normal
[2019-01-05] MEDS: POTASSIUM CHLORIDE 20 MEQ/15 ML UDCUP PER TUBE SCH (08:18)
[2019-01-05] MEDS: FUROSEMIDE 20 MG/2 ML VIAL IV SCH ×3 (08:19→21:56)
[2019-01-05] MEDS: ASCORBIC ACID 500 MG TABLET PO SCH ×2 (08:19→21:56)
[2019-01-05] MEDS: INSULIN GLARGINE 100 UNIT/ML SUBCUT SCH (08:19)
[2019-01-05] MEDS: methylPREDNISolone SOD SUC 40 MG/1 ML VIAL IV SCH ×2 (08:19→21:56)
[2019-01-05] MEDS: AMIODARONE 200 MG TABLET PO SCH ×2 (08:20→21:55)
[2019-01-05] MEDS: ASPIRIN CHEW 81 MG TABLET PO SCH (08:20)
[2019-01-05] MEDS: LANSOPRAZOLE ODT 30 MG TABLET PER TUBE SCH (08:20)
[2019-01-05] MEDS: SPIRONOLACTONE 25 MG TABLET PO SCH (08:20)
[2019-01-05] MEDS: GABAPENTIN 100 MG CAPSULE PO SCH ×3 (08:20→21:56)
[2019-01-05] MEDS: CARVEDILOL 6.25 MG TABLET PO SCH ×2 (08:20→21:55)
[2019-01-05] MEDS: APIXABAN 5 MG TABLET PO SCH ×2 (08:20→21:55)
[2019-01-05] MEDS: DESITIN 4OZ/NYSTATIN 15 GRAM MIXTURE PASTE TOP SCH ×2 (08:21→21:56)
[2019-01-05] MEDS: CLORAZEPATE 3.75 MG TABLET PO SCH ×2 (10:00→21:56)
[2019-01-05] MEDS: FLUCONAZOLE INJ 100 MG in IV BAG 1 EACH IV SCH (13:00)
[2019-01-05] MEDS ORDERED: methylPREDNISolone SOD SUC 40 MG/1 ML VIAL IV SCH (20:00)
[2019-01-05] MEDS: ROSUVASTATIN 20 MG TABLET PO SCH (21:55)
[2019-01-06] MEDS: LEVALBUTEROL 1.25 MG/3 ML NEB RESP TX SCH ×4 (00:32→20:34)
[2019-01-06] MEDS: INSULIN LISPRO 100 UNIT/ML SUBCUT SCH ×4 (00:37→17:49)
[2019-01-06] MEDS ORDERED: OLANZapine 10 MG VIAL IM ONE (02:23)
[2019-01-06 04:13] LABS: Basophils # 0.1 10*3/uL (0.0-0.2); Basophils % 0.2 % (0.0-0.8); Hematocrit 32.8 VOL% (35.7-47.0); Hemoglobin 10.2 GM/DL (12.0-16.0); Immature Granulocytes % 1.1 %; Immature Granulocytes Absolute 0.26 #; Lymphocytes # 0.6 10*3/uL (1.4-4.0); Lymphocytes % 2.4 % (21.3-54.2); Mean Corpuscular HGB Conc 31.1 GM/DL (32-36); Mean Corpuscular Volume 95.1 FL (87-102); Mean Platelet Volume 11.5 FL (9.6-12.0); Monocytes % 3.6 % (1.7-12.7); Neutrophils % 92.7 % (38.7-73.9); Platelet Count 227 T/CUMM (130-400); Red Blood Count 3.45 MC/CUMM (3.8-5.5); Red Cell Distribution Width 14.5 % (9.3-17.3)
[2019-01-06 04:29] LABS: Calcium 8.2 MG/DL (8.5-10.1); Osmolality,Calculated 295.5 MOS/KG (273-304)
[2019-01-06 04:49] LABS: Anisocytosis 1+; Band Neutrophils 5 % (0-10); Hypochromasia 1+; Lymphocytes 2 % (20-55); Macrocytosis Slight; Microcytosis Slight; Segmented Neutrophils 91 % (50-85); Total Cells Counted 100
[2019-01-06 04:50] LABS: Platelet Estimate Adequate
[2019-01-06] MEDS: POTASSIUM CHLORIDE 20 MEQ/15 ML UDCUP PER TUBE SCH (08:51)
[2019-01-06] MEDS: FUROSEMIDE 20 MG/2 ML VIAL IV SCH ×3 (08:52→20:08)
[2019-01-06] MEDS: ASCORBIC ACID 500 MG TABLET PO SCH ×2 (08:54→20:09)
[2019-01-06] MEDS: CARVEDILOL 6.25 MG TABLET PO SCH ×2 (08:54→20:08)
[2019-01-06] MEDS: APIXABAN 5 MG TABLET PO SCH ×2 (08:54→20:08)
[2019-01-06] MEDS: GABAPENTIN 100 MG CAPSULE PO SCH ×3 (08:55→20:08)
[2019-01-06] MEDS: SPIRONOLACTONE 25 MG TABLET PO SCH (08:55)
[2019-01-06] MEDS: DESITIN 4OZ/NYSTATIN 15 GRAM MIXTURE PASTE TOP SCH ×2 (08:55→20:09)
[2019-01-06] MEDS: CLORAZEPATE 3.75 MG TABLET PO SCH ×2 (08:55→20:08)
[2019-01-06] MEDS: ASPIRIN CHEW 81 MG TABLET PO SCH (08:56)
[2019-01-06] MEDS: methylPREDNISolone SOD SUC 40 MG/1 ML VIAL IV SCH ×2 (08:56→20:09)
[2019-01-06] MEDS: INSULIN GLARGINE 100 UNIT/ML SUBCUT SCH (08:56)
[2019-01-06] MEDS: LANSOPRAZOLE ODT 30 MG TABLET PER TUBE SCH (08:56)
[2019-01-06] MEDS: AMIODARONE 200 MG TABLET PO SCH ×2 (08:56→20:08)
[2019-01-06] MEDS: FLUCONAZOLE INJ 100 MG in IV BAG 1 EACH IV SCH (09:10)
[2019-01-06] MEDS: ROSUVASTATIN 20 MG TABLET PO SCH (20:08)
[2019-01-07] MEDS: INSULIN LISPRO 100 UNIT/ML SUBCUT SCH ×4 (00:49→18:53)
[2019-01-07] MEDS: LEVALBUTEROL 1.25 MG/3 ML NEB RESP TX SCH ×4 (01:29→19:27)
[2019-01-07 04:57] LABS: Basophils % 0.1 % (0.0-0.8); Hematocrit 30.7 VOL% (35.7-47.0); Hemoglobin 9.5 GM/DL (12.0-16.0); Immature Granulocytes Absolute 0.18 #; Lymphocytes # 0.6 10*3/uL (1.4-4.0); Mean Corpuscular HGB Conc 30.9 GM/DL (32-36); Mean Platelet Volume 11.1 FL (9.6-12.0); Monocytes % 2.8 % (1.7-12.7); Neutrophils % 93.1 % (38.7-73.9); Platelet Count 199 T/CUMM (130-400); Red Blood Count 3.23 MC/CUMM (3.8-5.5); Red Cell Distribution Width 14.5 % (9.3-17.3); White Blood Count 18.9 T/CUMM (4-12)
[2019-01-07 05:22] LABS: Calcium 7.9 MG/DL (8.5-10.1); Osmolality,Calculated 298.3 MOS/KG (273-304); Prealbumin 30.4 MG/DL (20-40)
[2019-01-07 05:59] LABS: Anisocytosis Slight; Lymphocytes 3 % (20-55); Microcytosis Slight; Segmented Neutrophils 94 % (50-85); Total Cells Counted 100
[2019-01-07 06:00] LABS: Platelet Estimate Normal; Stomatocytes Slight
[2019-01-07] MEDS: GABAPENTIN 100 MG CAPSULE PO SCH ×3 (08:35→20:25)
[2019-01-07] MEDS: ASPIRIN CHEW 81 MG TABLET PO SCH (08:35)
[2019-01-07] MEDS: CARVEDILOL 6.25 MG TABLET PO SCH ×2 (08:35→20:25)
[2019-01-07] MEDS: POTASSIUM CHLORIDE 20 MEQ/15 ML UDCUP PER TUBE SCH (08:35)
[2019-01-07] MEDS: AMIODARONE 200 MG TABLET PO SCH ×2 (08:35→20:25)
[2019-01-07] MEDS: LANSOPRAZOLE ODT 30 MG TABLET PER TUBE SCH (08:35)
[2019-01-07] MEDS: CLORAZEPATE 3.75 MG TABLET PO SCH ×2 (08:35→20:25)
[2019-01-07] MEDS: SPIRONOLACTONE 25 MG TABLET PO SCH (08:35)
[2019-01-07] MEDS: methylPREDNISolone SOD SUC 40 MG/1 ML VIAL IV SCH ×2 (08:36→20:26)
[2019-01-07] MEDS: FUROSEMIDE 20 MG/2 ML VIAL IV SCH (08:36)
[2019-01-07] MEDS: DESITIN 4OZ/NYSTATIN 15 GRAM MIXTURE PASTE TOP SCH ×2 (08:37→20:26)
[2019-01-07] MEDS: INSULIN GLARGINE 100 UNIT/ML SUBCUT SCH (08:37)
[2019-01-07] MEDS: ASCORBIC ACID 500 MG TABLET PO SCH ×2 (08:59→20:25)
[2019-01-07] MEDS ORDERED: predniSONE 20 MG TABLET PO SCH (09:00)
[2019-01-07] MEDS: FLUCONAZOLE INJ 100 MG in IV BAG 1 EACH IV SCH (09:06)
[2019-01-07] MEDS ORDERED: RAMIPRIL 2.5 MG CAPSULE PO SCH (10:00)
[2019-01-07] MEDS: FUROSEMIDE 40 MG/4 ML VIAL IV SCH ×2 (15:25→20:25)
[2019-01-07] MEDS: ROSUVASTATIN 20 MG TABLET PO SCH (20:25)
[2019-01-08] MEDS: LEVALBUTEROL 1.25 MG/3 ML NEB RESP TX SCH ×4 (00:52→20:22)
[2019-01-08] MEDS: INSULIN LISPRO 100 UNIT/ML SUBCUT SCH ×4 (02:29→17:45)
[2019-01-08 05:51] LABS: Basophils % 0.1 % (0.0-0.8); Hemoglobin 9.6 GM/DL (12.0-16.0); Immature Granulocytes % 0.9 %; Immature Granulocytes Absolute 0.16 #; Lymphocytes # 0.6 10*3/uL (1.4-4.0); Lymphocytes % 3.4 % (21.3-54.2); Mean Platelet Volume 11.2 FL (9.6-12.0); Neutrophils % 92.6 % (38.7-73.9); Platelet Count 216 T/CUMM (130-400); Red Blood Count 3.19 MC/CUMM (3.8-5.5); Red Cell Distribution Width 14.6 % (9.3-17.3); White Blood Count 17.3 T/CUMM (4-12)
[2019-01-08 05:59] LABS: Albumin 2.5 G/DL (3.4-5.0); Bilirubin,Total 0.7 MG/DL (0.2-1.0); Calcium 7.9 MG/DL (8.5-10.1); Osmolality,Calculated 296.3 MOS/KG (273-304); Total Protein 5.4 G/DL (6.4-8.3)
[2019-01-08 06:27] LABS: Anisocytosis Slight; Lymphocytes 6 % (20-55); Platelet Estimate Adequate; Segmented Neutrophils 89 % (50-85); Total Cells Counted 100
[2019-01-08] MEDS ORDERED: ENALAPRIL 5 MG TABLET PO SCH (09:00)
[2019-01-08] MEDS: GABAPENTIN 100 MG CAPSULE PO SCH ×3 (09:13→21:24)
[2019-01-08] MEDS: AMIODARONE 200 MG TABLET PO SCH ×2 (09:13→21:24)
[2019-01-08] MEDS: SPIRONOLACTONE 25 MG TABLET PO SCH (09:13)
[2019-01-08] MEDS: CLORAZEPATE 3.75 MG TABLET PO SCH ×2 (09:14→21:23)
[2019-01-08] MEDS: ASCORBIC ACID 500 MG TABLET PO SCH ×2 (09:14→21:23)
[2019-01-08] MEDS: CARVEDILOL 6.25 MG TABLET PO SCH ×2 (09:16→21:24)
[2019-01-08] MEDS: ASPIRIN CHEW 81 MG TABLET PO SCH (09:16)
[2019-01-08] MEDS: FUROSEMIDE 40 MG/4 ML VIAL IV SCH ×4 (09:17→21:54)
[2019-01-08] MEDS: methylPREDNISolone SOD SUC 40 MG/1 ML VIAL IV SCH ×2 (09:18→21:24)
[2019-01-08] MEDS: INSULIN GLARGINE 100 UNIT/ML SUBCUT SCH (09:19)
[2019-01-08] MEDS: LANSOPRAZOLE ODT 30 MG TABLET PER TUBE SCH (09:20)
[2019-01-08] MEDS: DESITIN 4OZ/NYSTATIN 15 GRAM MIXTURE PASTE TOP SCH ×2 (09:20→21:54)
[2019-01-08] MEDS: POTASSIUM CHLORIDE 20 MEQ/15 ML UDCUP PER TUBE SCH (09:23)
[2019-01-08] MEDS: FLUCONAZOLE INJ 100 MG in IV BAG 1 EACH IV SCH (11:18)
[2019-01-08 20:06] LABS: Apearance,Urine Slightly Hazy (Clear); Bacteria,Urine Occasional /HPF (Few); Bilirubin,Urine Negative (Negative); Blood, Urine Large mg/dL (Negative); Glucose,Urine (UA) Negative (Negative); Ketones,Urine Negative (Negative); Mucus,Urine Occasional /LPF (Occasional); Nitrite,Urine Negative (Negative); Protein,Urine Negative; RBC,Urine 161 /HPF (0-4); Squamous Epithelial Cell,Urine Occasional /HPF (0-10); Urine Color Yellow (Yellow); Urine Specific Gravity 1.008 (1.001-1.035); WBC,Urine 46 /HPF (0-6)
[2019-01-08] MEDS: ROSUVASTATIN 20 MG TABLET PO SCH (21:23)
[2019-01-09] MEDS: INSULIN LISPRO 100 UNIT/ML SUBCUT SCH ×5 (00:21→19:14)
[2019-01-09] MEDS: LEVALBUTEROL 1.25 MG/3 ML NEB RESP TX SCH ×4 (01:45→19:00)
[2019-01-09 05:06] LABS: Basophils % 0.2 % (0.0-0.8); Hematocrit 30.3 VOL% (35.7-47.0); Hemoglobin 9.8 GM/DL (12.0-16.0); Immature Granulocytes % 0.9 %; Lymphocytes # 0.7 10*3/uL (1.4-4.0); Lymphocytes % 3.2 % (21.3-54.2); Mean Corpuscular HGB Conc 32.3 GM/DL (32-36); Mean Corpuscular Volume 93.5 FL (87-102); Mean Platelet Volume 11.3 FL (9.6-12.0); Monocytes % 3.1 % (1.7-12.7); Neutrophils % 92.6 % (38.7-73.9); Platelet Count 216 T/CUMM (130-400); Red Blood Count 3.24 MC/CUMM (3.8-5.5); Red Cell Distribution Width 14.9 % (9.3-17.3); White Blood Count 21.1 T/CUMM (4-12)
[2019-01-09 05:30] LABS: Albumin 2.3 G/DL (3.4-5.0); Bilirubin,Total 0.6 MG/DL (0.2-1.0); Calcium 8.1 MG/DL (8.5-10.1); Total Protein 5.4 G/DL (6.4-8.3)
[2019-01-09 05:43] LABS: Lymphocytes 3 % (20-55); Segmented Neutrophils 96 % (50-85); Total Cells Counted 100
[2019-01-09 05:44] LABS: Anisocytosis 1+; Platelet Estimate Adequate
[2019-01-09] MEDS ORDERED: FLUCONAZOLE 100 MG TABLET PO ONE (09:00)
[2019-01-09] MEDS ORDERED: ENALAPRIL 2.5 MG TABLET PO SCH (09:00)
[2019-01-09] MEDS: POTASSIUM CHLORIDE 20 MEQ/15 ML UDCUP PO SCH (09:40)
[2019-01-09] MEDS: ASPIRIN CHEW 81 MG TABLET PO SCH (09:40)
[2019-01-09] MEDS: SPIRONOLACTONE 25 MG TABLET PO SCH (09:40)
[2019-01-09] MEDS: ASCORBIC ACID 500 MG TABLET PO SCH ×2 (09:40→20:48)
[2019-01-09] MEDS: GABAPENTIN 100 MG CAPSULE PO SCH ×3 (09:42→20:49)
[2019-01-09] MEDS: AMIODARONE 200 MG TABLET PO SCH ×2 (09:42→20:48)
[2019-01-09] MEDS: CARVEDILOL 6.25 MG TABLET PO SCH ×2 (09:42→22:27)
[2019-01-09] MEDS: INSULIN GLARGINE 100 UNIT/ML SUBCUT SCH (09:43)
[2019-01-09] MEDS: CLORAZEPATE 3.75 MG TABLET PO SCH ×2 (09:43→22:27)
[2019-01-09] MEDS: FUROSEMIDE 40 MG/4 ML VIAL IV SCH (09:43)
[2019-01-09] MEDS: methylPREDNISolone SOD SUC 40 MG/1 ML VIAL IV SCH ×2 (09:43→20:49)
[2019-01-09] MEDS: DESITIN 4OZ/NYSTATIN 15 GRAM MIXTURE PASTE TOP SCH ×2 (09:45→20:49)
[2019-01-09] MEDS: LANSOPRAZOLE ODT 30 MG TABLET PO SCH (09:45)
[2019-01-09] MEDS: cefTRIAXone 1,000 MG in SYRINGE 1 EACH IV SCH (14:43)
[2019-01-09] MEDS: FUROSEMIDE 20 MG TABLET PO SCH (16:56)
[2019-01-09] MEDS: ROSUVASTATIN 20 MG TABLET PO SCH (20:48)
[2019-01-09] MEDS ORDERED: FUROSEMIDE 40 MG/4 ML VIAL IV SCH (21:00)
[2019-01-09] MEDS ORDERED: APIXABAN 2.5 MG TABLET PO SCH (21:00)
[2019-01-10] MEDS: INSULIN LISPRO 100 UNIT/ML SUBCUT SCH ×4 (00:20→18:00)
[2019-01-10 05:07] LABS: Basophils % 0.2 % (0.0-0.8); Hematocrit 27.9 VOL% (35.7-47.0); Hemoglobin 8.9 GM/DL (12.0-16.0); Immature Granulocytes % 0.9 %; Immature Granulocytes Absolute 0.17 #; Lymphocytes # 0.5 10*3/uL (1.4-4.0); Lymphocytes % 2.8 % (21.3-54.2); Mean Corpuscular HGB Conc 31.9 GM/DL (32-36); Mean Corpuscular Volume 93.6 FL (87-102); Mean Platelet Volume 10.6 FL (9.6-12.0); Monocytes % 2.3 % (1.7-12.7); Neutrophils % 93.8 % (38.7-73.9); Platelet Count 198 T/CUMM (130-400); Red Blood Count 2.98 MC/CUMM (3.8-5.5); Red Cell Distribution Width 14.9 % (9.3-17.3); White Blood Count 18.4 T/CUMM (4-12)
[2019-01-10 05:25] LABS: Albumin 2.3 G/DL (3.4-5.0); Bilirubin,Total 0.4 MG/DL (0.2-1.0); Calcium 7.7 MG/DL (8.5-10.1); Total Protein 5.2 G/DL (6.4-8.3)
[2019-01-10 06:18] LABS: Hypochromasia 1+; Lymphocytes 1 % (20-55); Platelet Estimate Adequate; Segmented Neutrophils 98 % (50-85); Total Cells Counted 100
[2019-01-10] MEDS: LEVALBUTEROL 1.25 MG/3 ML NEB RESP TX SCH ×4 (07:22→19:19)
[2019-01-10] MEDS: CLORAZEPATE 3.75 MG TABLET PO SCH ×2 (09:25→20:38)
[2019-01-10] MEDS: ASCORBIC ACID 500 MG TABLET PO SCH ×2 (09:25→20:38)
[2019-01-10] MEDS: FUROSEMIDE 20 MG TABLET PO SCH ×2 (09:25→16:32)
[2019-01-10] MEDS: AMIODARONE 200 MG TABLET PO SCH ×2 (09:26→20:38)
[2019-01-10] MEDS: POTASSIUM CHLORIDE 20 MEQ/15 ML UDCUP PO SCH (09:26)
[2019-01-10] MEDS: SPIRONOLACTONE 25 MG TABLET PO SCH (09:26)
[2019-01-10] MEDS: CARVEDILOL 6.25 MG TABLET PO SCH ×2 (09:26→20:39)
[2019-01-10] MEDS: ASPIRIN CHEW 81 MG TABLET PO SCH (09:26)
[2019-01-10] MEDS: methylPREDNISolone SOD SUC 40 MG/1 ML VIAL IV SCH ×2 (09:26→20:38)
[2019-01-10] MEDS: GABAPENTIN 100 MG CAPSULE PO SCH ×3 (09:26→20:38)
[2019-01-10] MEDS: INSULIN GLARGINE 100 UNIT/ML SUBCUT SCH (09:27)
[2019-01-10] MEDS: LANSOPRAZOLE ODT 30 MG TABLET PO SCH (09:28)
[2019-01-10] MEDS: DESITIN 4OZ/NYSTATIN 15 GRAM MIXTURE PASTE TOP SCH ×2 (09:28→20:39)
[2019-01-10] MEDS: cefTRIAXone 1,000 MG in SYRINGE 1 EACH IV SCH (13:54)
[2019-01-10] MEDS: LINEZOLID INJ 300 MG in PREMIX 1 EACH IV SCH (18:36)
[2019-01-10] MEDS: ROSUVASTATIN 20 MG TABLET PO SCH (20:38)
[2019-01-11] MEDS: INSULIN LISPRO 100 UNIT/ML SUBCUT SCH ×4 (01:03→17:48)
[2019-01-11] MEDS: LEVALBUTEROL 1.25 MG/3 ML NEB RESP TX SCH ×4 (01:30→19:05)
[2019-01-11 04:52] LABS: Basophils % 0.1 % (0.0-0.8); Hematocrit 29.3 VOL% (35.7-47.0); Hemoglobin 9.3 GM/DL (12.0-16.0); Immature Granulocytes % 0.8 %; Immature Granulocytes Absolute 0.15 #; Lymphocytes # 0.5 10*3/uL (1.4-4.0); Mean Corpuscular HGB Conc 31.7 GM/DL (32-36); Mean Corpuscular Volume 95.4 FL (87-102); Mean Platelet Volume 10.4 FL (9.6-12.0); Monocytes % 2.3 % (1.7-12.7); Neutrophils % 93.8 % (38.7-73.9); Platelet Count 197 T/CUMM (130-400); Red Blood Count 3.07 MC/CUMM (3.8-5.5); White Blood Count 17.9 T/CUMM (4-12)
[2019-01-11 05:24] LABS: Albumin 2.4 G/DL (3.4-5.0); Bilirubin,Total 0.5 MG/DL (0.2-1.0); Calcium 7.9 MG/DL (8.5-10.1); Osmolality,Calculated 287.8 MOS/KG (273-304); Total Protein 5.3 G/DL (6.4-8.3)
[2019-01-11] MEDS: LINEZOLID INJ 300 MG in PREMIX 1 EACH IV SCH ×2 (05:53→23:03)
[2019-01-11 06:15] LABS: Eosinophils 1 % (0-10); Lymphocytes 1 % (20-55); Platelet Estimate Adequate; Polychromasia Few; Segmented Neutrophils 98 % (50-85); Total Cells Counted 100
[2019-01-11] MEDS: ASCORBIC ACID 500 MG TABLET PO SCH ×2 (08:56→23:02)
[2019-01-11] MEDS: GABAPENTIN 100 MG CAPSULE PO SCH ×3 (08:56→23:01)
[2019-01-11] MEDS: SPIRONOLACTONE 25 MG TABLET PO SCH (08:56)
[2019-01-11] MEDS: FUROSEMIDE 20 MG TABLET PO SCH ×2 (08:56→15:27)
[2019-01-11] MEDS: CLORAZEPATE 3.75 MG TABLET PO SCH ×2 (08:56→23:02)
[2019-01-11] MEDS: AMIODARONE 200 MG TABLET PO SCH ×2 (08:57→22:59)
[2019-01-11] MEDS: LANSOPRAZOLE ODT 30 MG TABLET PO SCH (08:57)
[2019-01-11] MEDS: ASPIRIN CHEW 81 MG TABLET PO SCH (08:57)
[2019-01-11] MEDS: POTASSIUM CHLORIDE 20 MEQ/15 ML UDCUP PO SCH (08:57)
[2019-01-11] MEDS: INSULIN GLARGINE 100 UNIT/ML SUBCUT SCH (08:57)
[2019-01-11] MEDS: CARVEDILOL 6.25 MG TABLET PO SCH ×2 (08:57→23:04)
[2019-01-11] MEDS: DESITIN 4OZ/NYSTATIN 15 GRAM MIXTURE PASTE TOP SCH ×2 (08:58→23:03)
[2019-01-11] MEDS: methylPREDNISolone SOD SUC 40 MG/1 ML VIAL IV SCH ×2 (08:58→23:01)
[2019-01-11 11:37] LABS: Amorphous Crystals,Urine Occasional /HPF (Few); Apearance,Urine Slightly Hazy (Clear); Bacteria,Urine Occasional /HPF (Few); Bilirubin,Urine Negative (Negative); Blood, Urine Large mg/dL (Negative); Glucose,Urine (UA) Negative (Negative); Ketones,Urine Negative (Negative); Mucus,Urine Occasional /LPF (Occasional); Nitrite,Urine Negative (Negative); Protein,Urine 30 MG/DL; RBC,Urine 70 /HPF (0-4); Urine Color Yellow (Yellow); Urine Specific Gravity 1.012 (1.001-1.035); WBC,Urine 53 /HPF (0-6)
[2019-01-11] MEDS: ROSUVASTATIN 20 MG TABLET PO SCH (22:59)
[2019-01-12] MEDS: LEVALBUTEROL 1.25 MG/3 ML NEB RESP TX SCH ×4 (00:41→19:10)
[2019-01-12] MEDS: INSULIN LISPRO 100 UNIT/ML SUBCUT SCH ×4 (01:35→18:31)
[2019-01-12 05:55] LABS: Basophils % 0.1 % (0.0-0.8); Hematocrit 28.9 VOL% (35.7-47.0); Hemoglobin 9.4 GM/DL (12.0-16.0); Immature Granulocytes % 0.8 %; Immature Granulocytes Absolute 0.14 #; Lymphocytes # 0.6 10*3/uL (1.4-4.0); Lymphocytes % 3.2 % (21.3-54.2); Mean Corpuscular HGB Conc 32.5 GM/DL (32-36); Mean Corpuscular Volume 93.8 FL (87-102); Mean Platelet Volume 10.9 FL (9.6-12.0); Monocytes % 3.1 % (1.7-12.7); Neutrophils % 92.8 % (38.7-73.9); Platelet Count 197 T/CUMM (130-400); Red Blood Count 3.08 MC/CUMM (3.8-5.5); White Blood Count 17.7 T/CUMM (4-12)
[2019-01-12 06:49] LABS: Band Neutrophils 1 % (0-10); Hypochromasia 1+; Lymphocytes 4 % (20-55); Platelet Estimate Adequate; Segmented Neutrophils 94 % (50-85); Total Cells Counted 100
[2019-01-12 06:52] LABS: Calcium 8.2 MG/DL (8.5-10.1); Osmolality,Calculated 280.8 MOS/KG (273-304)
[2019-01-12] MEDS: methylPREDNISolone SOD SUC 40 MG/1 ML VIAL IV SCH ×2 (09:56→21:42)
[2019-01-12] MEDS: INSULIN GLARGINE 100 UNIT/ML SUBCUT SCH (09:56)
[2019-01-12] MEDS: POTASSIUM CHLORIDE 20 MEQ/15 ML UDCUP PO SCH (09:57)
[2019-01-12] MEDS: GABAPENTIN 100 MG CAPSULE PO SCH ×3 (09:58→21:43)
[2019-01-12] MEDS: ASPIRIN CHEW 81 MG TABLET PO SCH (09:58)
[2019-01-12] MEDS: LANSOPRAZOLE ODT 30 MG TABLET PO SCH (09:58)
[2019-01-12] MEDS: CLORAZEPATE 3.75 MG TABLET PO SCH (09:58)
[2019-01-12] MEDS: CARVEDILOL 6.25 MG TABLET PO SCH ×2 (09:58→21:46)
[2019-01-12] MEDS: FUROSEMIDE 20 MG TABLET PO SCH ×2 (09:58→16:25)
[2019-01-12] MEDS: SPIRONOLACTONE 25 MG TABLET PO SCH (09:58)
[2019-01-12] MEDS: AMIODARONE 200 MG TABLET PO SCH ×2 (09:58→21:44)
[2019-01-12] MEDS: ASCORBIC ACID 500 MG TABLET PO SCH ×2 (10:06→21:43)
[2019-01-12] MEDS: DESITIN 4OZ/NYSTATIN 15 GRAM MIXTURE PASTE TOP SCH ×2 (10:06→22:01)
[2019-01-12] MEDS: LINEZOLID INJ 300 MG in PREMIX 1 EACH IV SCH ×2 (10:06→21:42)
[2019-01-12] MEDS: ROSUVASTATIN 20 MG TABLET PO SCH (21:43)
[2019-01-13] MEDS: LEVALBUTEROL 1.25 MG/3 ML NEB RESP TX SCH ×4 (00:49→18:52)
[2019-01-13] MEDS: INSULIN LISPRO 100 UNIT/ML SUBCUT SCH ×4 (01:11→18:09)
[2019-01-13 05:45] LABS: Hematocrit 27.7 VOL% (35.7-47.0); Hemoglobin 8.9 GM/DL (12.0-16.0); Immature Granulocytes % 0.6 %; Immature Granulocytes Absolute 0.08 #; Lymphocytes # 0.4 10*3/uL (1.4-4.0); Lymphocytes % 2.9 % (21.3-54.2); Mean Corpuscular HGB Conc 32.1 GM/DL (32-36); Mean Corpuscular Volume 93.3 FL (87-102); Mean Platelet Volume 10.6 FL (9.6-12.0); Monocytes % 2.6 % (1.7-12.7); Neutrophils % 93.9 % (38.7-73.9); Platelet Count 175 T/CUMM (130-400); Red Blood Count 2.97 MC/CUMM (3.8-5.5); Red Cell Distribution Width 15.1 % (9.3-17.3); White Blood Count 13.7 T/CUMM (4-12)
[2019-01-13 06:31] LABS: Lymphocytes 4 % (20-55); Segmented Neutrophils 91 % (50-85); Total Cells Counted 100
[2019-01-13 06:32] LABS: Hypochromasia 1+; Platelet Estimate Normal
[2019-01-13 06:34] LABS: Calcium 8.1 MG/DL (8.5-10.1); Osmolality,Calculated 282.7 MOS/KG (273-304)
[2019-01-13 06:35] LABS: Calcium 8.1 MG/DL (8.5-10.1); Osmolality,Calculated 284.5 MOS/KG (273-304)
[2019-01-13] MEDS: POTASSIUM CHLORIDE 20 MEQ/15 ML UDCUP PO SCH (08:21)
[2019-01-13] MEDS: methylPREDNISolone SOD SUC 40 MG/1 ML VIAL IV SCH ×2 (08:22→20:29)
[2019-01-13] MEDS: SPIRONOLACTONE 25 MG TABLET PO SCH (08:23)
[2019-01-13] MEDS: FUROSEMIDE 20 MG TABLET PO SCH ×2 (08:23→15:54)
[2019-01-13] MEDS: AMIODARONE 200 MG TABLET PO SCH ×2 (08:23→20:29)
[2019-01-13] MEDS: GABAPENTIN 100 MG CAPSULE PO SCH ×3 (08:23→20:29)
[2019-01-13] MEDS: CARVEDILOL 6.25 MG TABLET PO SCH ×2 (08:23→23:32)
[2019-01-13] MEDS: INSULIN GLARGINE 100 UNIT/ML SUBCUT SCH (08:23)
[2019-01-13] MEDS: ASPIRIN CHEW 81 MG TABLET PO SCH (08:23)
[2019-01-13] MEDS: ASCORBIC ACID 500 MG TABLET PO SCH ×2 (08:23→20:28)
[2019-01-13] MEDS: LINEZOLID INJ 300 MG in PREMIX 1 EACH IV SCH ×2 (08:24→20:27)
[2019-01-13] MEDS: LANSOPRAZOLE ODT 30 MG TABLET PO SCH (08:24)
[2019-01-13] MEDS: DESITIN 4OZ/NYSTATIN 15 GRAM MIXTURE PASTE TOP SCH ×2 (08:25→20:31)
[2019-01-13] MEDS ORDERED: POLYETHYLENE GLYCOL POWDER 17 GM PACK PO PRN (15:22)
[2019-01-13] MEDS: DOCUSATE SODIUM 100 MG CAPSULE PO SCH (20:28)
[2019-01-13] MEDS: ROSUVASTATIN 20 MG TABLET PO SCH (20:28)
[2019-01-14] MEDS: INSULIN LISPRO 100 UNIT/ML SUBCUT SCH ×3 (01:13→11:40)
[2019-01-14] MEDS: LEVALBUTEROL 1.25 MG/3 ML NEB RESP TX SCH ×3 (01:34→13:00)
[2019-01-14 05:22] LABS: Basophils % 0.1 % (0.0-0.8); Hematocrit 28.1 VOL% (35.7-47.0); Hemoglobin 9.1 GM/DL (12.0-16.0); Immature Granulocytes % 0.7 %; Lymphocytes # 0.4 10*3/uL (1.4-4.0); Mean Corpuscular HGB Conc 32.4 GM/DL (32-36); Mean Platelet Volume 10.9 FL (9.6-12.0); Monocytes % 2.7 % (1.7-12.7); Neutrophils % 93.5 % (38.7-73.9); Platelet Count 170 T/CUMM (130-400); Red Blood Count 3.02 MC/CUMM (3.8-5.5); Red Cell Distribution Width 15.2 % (9.3-17.3); White Blood Count 13.8 T/CUMM (4-12)
[2019-01-14 05:49] LABS: Calcium 7.7 MG/DL (8.5-10.1)
[2019-01-14 06:12] LABS: Band Neutrophils 4 % (0-10); Hypochromasia Slight; Lymphocytes 2 % (20-55); Platelet Estimate Normal; Segmented Neutrophils 92 % (50-85); Total Cells Counted 100
[2019-01-14] MEDS: DOCUSATE SODIUM 100 MG CAPSULE PO SCH (08:21)
[2019-01-14] MEDS: SPIRONOLACTONE 25 MG TABLET PO SCH (08:21)
[2019-01-14] MEDS: LANSOPRAZOLE ODT 30 MG TABLET PO SCH (08:21)
[2019-01-14] MEDS: FUROSEMIDE 20 MG TABLET PO SCH (08:21)
[2019-01-14] MEDS: ASPIRIN CHEW 81 MG TABLET PO SCH (08:21)
[2019-01-14] MEDS: CARVEDILOL 6.25 MG TABLET PO SCH (08:21)
[2019-01-14] MEDS: ASCORBIC ACID 500 MG TABLET PO SCH (08:21)
[2019-01-14] MEDS: methylPREDNISolone SOD SUC 40 MG/1 ML VIAL IV SCH (08:21)
[2019-01-14] MEDS: INSULIN GLARGINE 100 UNIT/ML SUBCUT SCH (08:22)
[2019-01-14] MEDS: POTASSIUM CHLORIDE 20 MEQ/15 ML UDCUP PO SCH (08:22)
[2019-01-14] MEDS: DESITIN 4OZ/NYSTATIN 15 GRAM MIXTURE PASTE TOP SCH (08:27)
[2019-01-14] MEDS: LINEZOLID INJ 300 MG in PREMIX 1 EACH IV SCH (08:28)
[2019-01-14] MEDS ORDERED: SACUBITRIL/VALSARTAN 49-51 MG TABLET PO SCH (09:00)
[2019-01-14] MEDS ORDERED: AMIODARONE 200 MG TABLET PO SCH (09:00)
[2019-01-14] MEDS: GABAPENTIN 100 MG CAPSULE PO SCH (09:49)
[2019-01-14 12:02] VITALS: BP 114/54
== END 2019-01-14 15:13 | disposition swing bed (61) | DRG 308 ==
LOC: EDUNIT# → EDBD → N.ED 05:04 → SUATTDRO 09:02 → N.EDINP 09:02 → N.TELEN 10:35 → N.CC 12-22 06:44 → N.2E 01-07 13:57
PROVIDERS: ADMIT Internal Medicine; ATTEND Hospitalist

== ENCOUNTER 2019-01-15 10:33 | Inpatient (IN) ==
[2019-01-15] MEDS ORDERED: SODIUM CHLORIDE 0.9% 500 ML IV STA (11:11)
[2019-01-15 11:50] LABS: Basophils % 0.1 % (0.0-0.8); Eosinophils # 0.1 10*3/uL (0.0-0.87); Eosinophils % 0.3 % (0.00-10.9); Hematocrit 35.9 VOL% (35.7-47.0); Immature Granulocytes % 0.8 %; Immature Granulocytes Absolute 0.11 #; Lymphocytes # 1.4 10*3/uL (1.4-4.0); Lymphocytes % 9.8 % (21.3-54.2); Mean Corpuscular HGB Conc 31.8 GM/DL (32-36); Mean Corpuscular Volume 94.2 FL (87-102); Mean Platelet Volume 10.3 FL (9.6-12.0); Monocytes % 3.1 % (1.7-12.7); Neutrophils % 85.9 % (38.7-73.9); Platelet Count 176 T/CUMM (130-400); Red Cell Distribution Width 15.7 % (9.3-17.3); White Blood Count 14.3 T/CUMM (4-12)
[2019-01-15 11:54] LABS: Red Blood Count 3.81 MC/CUMM (3.8-5.5)
[2019-01-15 11:55] LABS: Hemoglobin 11.4 GM/DL (12.0-16.0)
[2019-01-15 12:05] LABS: Calcium 8.5 MG/DL (8.5-10.1); Osmolality,Calculated 275.4 MOS/KG (273-304)
[2019-01-15 12:18] LABS: Apearance,Urine Slightly Hazy (Clear); Bilirubin,Urine Negative (Negative); Blood, Urine Moderate mg/dL (Negative); Glucose,Urine (UA) Negative (Negative); Ketones,Urine Negative (Negative); Nitrite,Urine Negative (Negative); Protein,Urine Negative; Urine Color Yellow (Yellow)
[2019-01-15 12:33] LABS: WBC,Urine 20-30 /HPF (0-6)
[2019-01-15 12:34] LABS: Bacteria,Urine Moderate /HPF (Few); Squamous Epithelial Cell,Urine Moderate /HPF (0-10)
[2019-01-15] MEDS ORDERED: LEVOFLOXACIN INJ 500 MG in PREMIX 1 EACH IV STA (12:44)
[2019-01-15] MEDS ORDERED: ONDANSETRON 4 MG/2 ML VIAL IV PRN (17:16)
[2019-01-15] MEDS ORDERED: ONDANSETRON 4 MG TABLET PO PRN (18:19)
[2019-01-15] MEDS ORDERED: BISACODYL 10 MG SUPP RECTAL PRN (18:19)
[2019-01-15] MEDS ORDERED: guaiFENesin 200 MG/10 ML UDCUP PO PRN (18:19)
[2019-01-15] MEDS ORDERED: ACETAMINOPHEN 325 MG TABLET PO PRN (18:19)
[2019-01-15] MEDS ORDERED: BISACODYL 5 MG TABLET PO PRN (18:19)
[2019-01-15] MEDS ORDERED: MAGNESIUM HYDROXIDE SUSP 30 ML UDCUP PO PRN (18:19)
[2019-01-15 18:30] LABS: Hematocrit 29.7 VOL% (35.7-47.0); Hemoglobin 9.7 GM/DL (12.0-16.0)
[2019-01-15] MEDS: METHENAMINE HIPPURATE 1 GM TABLET PO SCH (20:53)
[2019-01-15] MEDS: GABAPENTIN 100 MG CAPSULE PO SCH (20:53)
[2019-01-15] MEDS: ASCORBIC ACID 500 MG TABLET PO SCH (20:53)
[2019-01-15] MEDS: CARVEDILOL 6.25 MG TABLET PO SCH (21:08)
[2019-01-15] MEDS: ERTAPENEM 1,000 MG in SODIUM CHLORIDE 0.9% 100 ML IV SCH (21:08)
[2019-01-15] MEDS: SODIUM CHLORIDE 0.9% 1,000 ML IV SCH (21:45)
[2019-01-15 23:34] LABS: Hematocrit 28.5 VOL% (35.7-47.0); Hemoglobin 9.3 GM/DL (12.0-16.0)
[2019-01-16 04:45] LABS: Eosinophils % 0.3 % (0.00-10.9); Hematocrit 26.4 VOL% (35.7-47.0); Hemoglobin 8.6 GM/DL (12.0-16.0); Immature Granulocytes % 0.5 %; Immature Granulocytes Absolute 0.05 #; Lymphocytes # 0.8 10*3/uL (1.4-4.0); Lymphocytes % 8.7 % (21.3-54.2); Mean Corpuscular HGB Conc 32.6 GM/DL (32-36); Mean Platelet Volume 10.7 FL (9.6-12.0); Monocytes % 4.3 % (1.7-12.7); Neutrophils % 86.2 % (38.7-73.9); Platelet Count 121 T/CUMM (130-400); Red Blood Count 2.87 MC/CUMM (3.8-5.5); Red Cell Distribution Width 15.4 % (9.3-17.3); White Blood Count 9.7 T/CUMM (4-12)
[2019-01-16 04:58] LABS: Calcium 7.4 MG/DL (8.5-10.1)
[2019-01-16] MEDS: GABAPENTIN 100 MG CAPSULE PO SCH ×3 (09:07→22:30)
[2019-01-16] MEDS: LANSOPRAZOLE ODT 30 MG TABLET PO SCH (09:07)
[2019-01-16] MEDS: ASCORBIC ACID 500 MG TABLET PO SCH ×2 (09:07→22:30)
[2019-01-16] MEDS: AMIODARONE 200 MG TABLET PO SCH (09:07)
[2019-01-16] MEDS: CARVEDILOL 6.25 MG TABLET PO SCH ×2 (09:07→16:41)
[2019-01-16] MEDS: METHENAMINE HIPPURATE 1 GM TABLET PO SCH ×2 (09:07→22:30)
[2019-01-16] MEDS: PANTOPRAZOLE 40 MG TABLET PO SCH (09:07)
[2019-01-16] MEDS: ASPIRIN CHEW 81 MG TABLET PO SCH (09:07)
[2019-01-16] MEDS: SODIUM CHLORIDE 0.9% 1,000 ML IV SCH ×2 (09:08→13:43)
[2019-01-16] MEDS: ERTAPENEM 1,000 MG in SODIUM CHLORIDE 0.9% 100 ML IV SCH (20:05)
[2019-01-17 04:30] LABS: Eosinophils # 0.1 10*3/uL (0.0-0.87); Eosinophils % 1.5 % (0.00-10.9); Hemoglobin 7.8 GM/DL (12.0-16.0); Immature Granulocytes % 0.6 %; Immature Granulocytes Absolute 0.04 #; Lymphocytes # 0.7 10*3/uL (1.4-4.0); Lymphocytes % 10.7 % (21.3-54.2); Mean Corpuscular HGB Conc 32.5 GM/DL (32-36); Mean Corpuscular Volume 92.7 FL (87-102); Mean Platelet Volume 10.2 FL (9.6-12.0); Monocytes % 3.6 % (1.7-12.7); Neutrophils % 83.6 % (38.7-73.9); Red Blood Count 2.59 MC/CUMM (3.8-5.5); Red Cell Distribution Width 15.5 % (9.3-17.3); White Blood Count 6.6 T/CUMM (4-12)
[2019-01-17 04:46] LABS: Platelet Count 93 T/CUMM (130-400)
[2019-01-17 04:48] LABS: Calcium 7.4 MG/DL (8.5-10.1); Osmolality,Calculated 278.5 MOS/KG (273-304)
[2019-01-17 05:19] LABS: Microcytosis 1+; Platelet Estimate Decreased; Polychromasia Few
[2019-01-17] MEDS: SODIUM CHLORIDE 0.9% 1,000 ML IV SCH ×2 (06:57→14:11)
[2019-01-17] MEDS ORDERED: diphenhydrAMINE 50 MG/1 ML VIAL IV PRN ×2 (07:16→13:49)
[2019-01-17] MEDS ORDERED: SODIUM CHLORIDE 0.9% 1,000 ML IV PRN (07:16)
[2019-01-17] MEDS ORDERED: POTASSIUM CHLORIDE RIDER 10 MEQ in PREMIX 1 EACH IV PRN (07:30)
[2019-01-17] MEDS ORDERED: LACTATED RINGERS 500 ML IV SCH ×2 (08:00→13:53)
[2019-01-17] MEDS: POTASSIUM CHLORIDE 20 MEQ TABLET PO PRN ×3 (12:41→22:35)
[2019-01-17] MEDS: AMIODARONE 200 MG TABLET PO SCH (12:41)
[2019-01-17] MEDS: ASPIRIN CHEW 81 MG TABLET PO SCH (12:41)
[2019-01-17] MEDS: PANTOPRAZOLE 40 MG TABLET PO SCH (12:41)
[2019-01-17] MEDS: CARVEDILOL 6.25 MG TABLET PO SCH ×2 (12:42→17:45)
[2019-01-17] MEDS: GABAPENTIN 100 MG CAPSULE PO SCH ×3 (12:42→21:53)
[2019-01-17] MEDS: METHENAMINE HIPPURATE 1 GM TABLET PO SCH ×2 (12:42→21:53)
[2019-01-17] MEDS: LANSOPRAZOLE ODT 30 MG TABLET PO SCH (12:42)
[2019-01-17] MEDS: ASCORBIC ACID 500 MG TABLET PO SCH ×2 (12:42→21:53)
[2019-01-17] MEDS: MUPIROCIN 2% OINT 22 GM TUBE TOP SCH ×2 (16:44→21:56)
[2019-01-17] MEDS: ERTAPENEM 1,000 MG in SODIUM CHLORIDE 0.9% 100 ML IV SCH (20:34)
[2019-01-17 23:11] LABS: Hematocrit 32.8 VOL% (35.7-47.0); Hemoglobin 10.7 GM/DL (12.0-16.0)
[2019-01-18] MEDS: SODIUM CHLORIDE 0.9% 1,000 ML IV SCH (01:43)
[2019-01-18] MEDS: POTASSIUM CHLORIDE 20 MEQ TABLET PO PRN (03:16)
[2019-01-18 05:21] LABS: Basophils % 0.2 % (0.0-0.8); Eosinophils # 0.1 10*3/uL (0.0-0.87); Eosinophils % 1.5 % (0.00-10.9); Hematocrit 32.8 VOL% (35.7-47.0); Hemoglobin 10.4 GM/DL (12.0-16.0); Immature Granulocytes % 0.8 %; Immature Granulocytes Absolute 0.05 #; Lymphocytes # 0.7 10*3/uL (1.4-4.0); Lymphocytes % 11.4 % (21.3-54.2); Mean Corpuscular HGB Conc 31.7 GM/DL (32-36); Mean Corpuscular Volume 92.1 FL (87-102); Mean Platelet Volume 10.5 FL (9.6-12.0); Monocytes % 4.9 % (1.7-12.7); Neutrophils % 81.2 % (38.7-73.9); Platelet Count 78 T/CUMM (130-400); Red Blood Count 3.56 MC/CUMM (3.8-5.5); Red Cell Distribution Width 16.7 % (9.3-17.3); White Blood Count 6.1 T/CUMM (4-12)
[2019-01-18 05:35] LABS: Osmolality,Calculated 276.7 MOS/KG (273-304)
[2019-01-18 06:03] LABS: Eosinophils 1 % (0-10); Lymphocytes 11 % (20-55); Segmented Neutrophils 85 % (50-85); Total Cells Counted 100
[2019-01-18 06:04] LABS: Anisocytosis 1+; Platelet Estimate Decreased
[2019-01-18] MEDS: AMIODARONE 200 MG TABLET PO SCH (08:29)
[2019-01-18] MEDS: MUPIROCIN 2% OINT 22 GM TUBE TOP SCH ×2 (08:29→22:26)
[2019-01-18] MEDS: CARVEDILOL 6.25 MG TABLET PO SCH ×2 (08:29→17:11)
[2019-01-18] MEDS: ASPIRIN CHEW 81 MG TABLET PO SCH (08:29)
[2019-01-18] MEDS: METHENAMINE HIPPURATE 1 GM TABLET PO SCH ×2 (08:30→22:25)
[2019-01-18] MEDS: PANTOPRAZOLE 40 MG TABLET PO SCH (08:30)
[2019-01-18] MEDS: LANSOPRAZOLE ODT 30 MG TABLET PO SCH (08:30)
[2019-01-18] MEDS: ASCORBIC ACID 500 MG TABLET PO SCH ×2 (08:30→22:25)
[2019-01-18] MEDS: GABAPENTIN 100 MG CAPSULE PO SCH ×3 (08:30→22:25)
[2019-01-18] MEDS ORDERED: LIDOCAINE 2% 5 ML VIAL ONE (09:00)
[2019-01-18] MEDS ORDERED: PROPOFOL 200 MG/20 ML VIAL IV ONE (09:00)
[2019-01-18] MEDS ORDERED: ETOMIDATE 20 MG/10 ML VIAL IV ONE (09:00)
[2019-01-18] MEDS: cefTAZidime 1,000 MG in SYRINGE 1 EACH IV SCH ×2 (09:23→18:01)
[2019-01-19] MEDS: cefTAZidime 1,000 MG in SYRINGE 1 EACH IV SCH ×3 (00:52→17:35)
[2019-01-19] MEDS: SODIUM CHLORIDE 0.9% 1,000 ML IV SCH ×2 (00:53→08:25)
[2019-01-19 05:44] LABS: Basophils % 0.2 % (0.0-0.8); Eosinophils # 0.1 10*3/uL (0.0-0.87); Eosinophils % 1.2 % (0.00-10.9); Hematocrit 30.9 VOL% (35.7-47.0); Hemoglobin 9.9 GM/DL (12.0-16.0); Immature Granulocytes % 0.6 %; Immature Granulocytes Absolute 0.03 #; Lymphocytes # 0.8 10*3/uL (1.4-4.0); Mean Corpuscular Volume 92.2 FL (87-102); Mean Platelet Volume 9.9 FL (9.6-12.0); Monocytes % 5.2 % (1.7-12.7); Neutrophils % 76.8 % (38.7-73.9); Platelet Count 70 T/CUMM (130-400); Red Blood Count 3.35 MC/CUMM (3.8-5.5); Red Cell Distribution Width 17.1 % (9.3-17.3); White Blood Count 4.8 T/CUMM (4-12)
[2019-01-19 06:06] LABS: Calcium 7.4 MG/DL (8.5-10.1); Osmolality,Calculated 275.7 MOS/KG (273-304)
[2019-01-19 06:45] LABS: Platelet Estimate Decreased
[2019-01-19 06:46] LABS: Anisocytosis Slight
[2019-01-19] MEDS: METHENAMINE HIPPURATE 1 GM TABLET PO SCH ×2 (08:57→22:08)
[2019-01-19] MEDS: ASPIRIN CHEW 81 MG TABLET PO SCH (08:57)
[2019-01-19] MEDS: PANTOPRAZOLE 40 MG TABLET PO SCH (08:57)
[2019-01-19] MEDS: ASCORBIC ACID 500 MG TABLET PO SCH ×2 (08:57→22:10)
[2019-01-19] MEDS: LANSOPRAZOLE ODT 30 MG TABLET PO SCH (08:58)
[2019-01-19] MEDS: AMIODARONE 200 MG TABLET PO SCH (08:58)
[2019-01-19] MEDS: GABAPENTIN 100 MG CAPSULE PO SCH ×3 (08:58→22:10)
[2019-01-19] MEDS: CARVEDILOL 6.25 MG TABLET PO SCH ×2 (08:59→17:35)
[2019-01-19] MEDS: MUPIROCIN 2% OINT 22 GM TUBE TOP SCH ×2 (08:59→22:10)
[2019-01-20] MEDS: cefTAZidime 1,000 MG in SYRINGE 1 EACH IV SCH ×3 (01:50→16:12)
[2019-01-20 05:54] LABS: Eosinophils # 0.1 10*3/uL (0.0-0.87); Eosinophils % 1.8 % (0.00-10.9); Hemoglobin 9.5 GM/DL (12.0-16.0); Immature Granulocytes % 0.7 %; Immature Granulocytes Absolute 0.03 #; Lymphocytes # 0.9 10*3/uL (1.4-4.0); Lymphocytes % 19.6 % (21.3-54.2); Mean Corpuscular HGB Conc 33.9 GM/DL (32-36); Mean Platelet Volume 10.2 FL (9.6-12.0); Monocytes % 4.7 % (1.7-12.7); Neutrophils % 73.2 % (38.7-73.9); Platelet Count 65 T/CUMM (130-400); Red Blood Count 2.98 MC/CUMM (3.8-5.5); Red Cell Distribution Width 18.2 % (9.3-17.3); White Blood Count 4.5 T/CUMM (4-12)
[2019-01-20 06:17] LABS: Osmolality,Calculated 281.3 MOS/KG (273-304)
[2019-01-20] MEDS: POTASSIUM CHLORIDE 20 MEQ TABLET PO PRN ×4 (06:48→14:52)
[2019-01-20 06:50] LABS: Band Neutrophils 21 % (0-10); Eosinophils 1 % (0-10); Lymphocytes 12 % (20-55); Segmented Neutrophils 64 % (50-85); Total Cells Counted 100
[2019-01-20 06:51] LABS: Anisocytosis 1+; Platelet Estimate Decreased
[2019-01-20] MEDS: AMIODARONE 200 MG TABLET PO SCH (09:21)
[2019-01-20] MEDS: ASPIRIN CHEW 81 MG TABLET PO SCH (09:21)
[2019-01-20] MEDS: ASCORBIC ACID 500 MG TABLET PO SCH ×2 (09:21→21:14)
[2019-01-20] MEDS: CARVEDILOL 6.25 MG TABLET PO SCH ×2 (09:21→16:11)
[2019-01-20] MEDS: METHENAMINE HIPPURATE 1 GM TABLET PO SCH ×2 (09:21→21:15)
[2019-01-20] MEDS: GABAPENTIN 100 MG CAPSULE PO SCH ×3 (09:22→21:15)
[2019-01-20] MEDS: PANTOPRAZOLE 40 MG TABLET PO SCH (09:22)
[2019-01-20] MEDS: LANSOPRAZOLE ODT 30 MG TABLET PO SCH (09:23)
[2019-01-20] MEDS: MUPIROCIN 2% OINT 22 GM TUBE TOP SCH ×2 (09:24→21:15)
[2019-01-20] MEDS: SODIUM CHLORIDE 0.9% 1,000 ML IV SCH ×2 (11:31→11:32)
[2019-01-21] MEDS: cefTAZidime 1,000 MG in SYRINGE 1 EACH IV SCH ×3 (01:24→16:29)
[2019-01-21] MEDS: ASCORBIC ACID 500 MG TABLET PO SCH ×2 (09:25→20:07)
[2019-01-21] MEDS: METHENAMINE HIPPURATE 1 GM TABLET PO SCH ×2 (09:25→20:08)
[2019-01-21] MEDS: MUPIROCIN 2% OINT 22 GM TUBE TOP SCH ×2 (09:26→20:08)
[2019-01-21] MEDS: GABAPENTIN 100 MG CAPSULE PO SCH ×3 (09:26→20:08)
[2019-01-21] MEDS: ASPIRIN CHEW 81 MG TABLET PO SCH (09:26)
[2019-01-21] MEDS: LANSOPRAZOLE ODT 30 MG TABLET PO SCH (09:26)
[2019-01-21] MEDS: AMIODARONE 200 MG TABLET PO SCH (09:26)
[2019-01-21] MEDS: PANTOPRAZOLE 40 MG TABLET PO SCH (09:26)
[2019-01-21] MEDS: CARVEDILOL 6.25 MG TABLET PO SCH ×2 (09:26→16:30)
[2019-01-21 15:40] LABS: Basophils % 0.3 % (0.0-0.8); Eosinophils # 0.1 10*3/uL (0.0-0.87); Eosinophils % 2.3 % (0.00-10.9); Hemoglobin 9.9 GM/DL (12.0-16.0); Immature Granulocytes % 1.2 %; Immature Granulocytes Absolute 0.04 #; Lymphocytes # 0.8 10*3/uL (1.4-4.0); Lymphocytes % 24.4 % (21.3-54.2); Mean Corpuscular HGB Conc 36.7 GM/DL (32-36); Mean Platelet Volume 10.1 FL (9.6-12.0); Monocytes % 4.1 % (1.7-12.7); Neutrophils % 67.7 % (38.7-73.9); Platelet Count 60 T/CUMM (130-400); Red Cell Distribution Width 20.9 % (9.3-17.3); White Blood Count 3.4 T/CUMM (4-12)
[2019-01-21 16:04] LABS: Calcium 7.4 MG/DL (8.5-10.1); Osmolality,Calculated 281.4 MOS/KG (273-304)
[2019-01-21 16:41] LABS: Band Neutrophils 3 % (0-10); Eosinophils 3 % (0-10); Lymphocytes 19 % (20-55); Platelet Estimate Decreased; Segmented Neutrophils 73 % (50-85); Total Cells Counted 100
[2019-01-21] MEDS ORDERED: METOPROLOL TARTRATE 5 MG/5 ML VIAL IV ONE (21:45)
[2019-01-21] MEDS ORDERED: SODIUM CHLORIDE 0.9% 500 ML IV ONE (22:37)
[2019-01-21] MEDS ORDERED: METOPROLOL TARTRATE 5 MG/5 ML VIAL IV PRN (22:44)
[2019-01-22] MEDS: cefTAZidime 1,000 MG in SYRINGE 1 EACH IV SCH ×2 (01:01→09:27)
[2019-01-22 05:40] LABS: Basophils % 0.3 % (0.0-0.8); Eosinophils # 0.1 10*3/uL (0.0-0.87); Eosinophils % 1.8 % (0.00-10.9); Hematocrit 30.4 VOL% (35.7-47.0); Hemoglobin 9.7 GM/DL (12.0-16.0); Immature Granulocytes % 1.8 %; Immature Granulocytes Absolute 0.06 #; Lymphocytes # 1.1 10*3/uL (1.4-4.0); Mean Corpuscular HGB Conc 31.9 GM/DL (32-36); Mean Corpuscular Volume 98.7 FL (87-102); Mean Platelet Volume 10.9 FL (9.6-12.0); Monocytes % 4.4 % (1.7-12.7); Neutrophils % 59.7 % (38.7-73.9); Platelet Count 46 T/CUMM (130-400); Red Blood Count 3.08 MC/CUMM (3.8-5.5); Red Cell Distribution Width 18.3 % (9.3-17.3); White Blood Count 3.4 T/CUMM (4-12)
[2019-01-22 05:55] LABS: Calcium 7.4 MG/DL (8.5-10.1); Osmolality,Calculated 277.5 MOS/KG (273-304)
[2019-01-22 06:37] LABS: Anisocytosis 1+; Lymphocytes 29 % (20-55); Platelet Estimate Decreased; Segmented Neutrophils 66 % (50-85); Total Cells Counted 100
[2019-01-22] MEDS: CARVEDILOL 6.25 MG TABLET PO SCH ×2 (09:27→16:34)
[2019-01-22] MEDS: ASPIRIN CHEW 81 MG TABLET PO SCH (09:27)
[2019-01-22] MEDS: METHENAMINE HIPPURATE 1 GM TABLET PO SCH ×2 (09:27→20:52)
[2019-01-22] MEDS: GABAPENTIN 100 MG CAPSULE PO SCH ×3 (09:27→20:40)
[2019-01-22] MEDS: LANSOPRAZOLE ODT 30 MG TABLET PO SCH (09:27)
[2019-01-22] MEDS: PANTOPRAZOLE 40 MG TABLET PO SCH (09:28)
[2019-01-22] MEDS: ASCORBIC ACID 500 MG TABLET PO SCH ×2 (09:28→20:39)
[2019-01-22] MEDS: MUPIROCIN 2% OINT 22 GM TUBE TOP SCH ×2 (09:28→20:52)
[2019-01-22] MEDS: AMIODARONE 200 MG TABLET PO SCH (09:28)
[2019-01-22] MEDS: CIPROFLOXACIN INJ 400 MG in PREMIX 1 EACH IV SCH (13:27)
[2019-01-22] MEDS: ROSUVASTATIN 20 MG TABLET PO SCH (20:40)
[2019-01-22] MEDS: SACUBITRIL/VALSARTAN 49-51 MG TABLET PO SCH (20:40)
[2019-01-23] MEDS: CIPROFLOXACIN INJ 400 MG in PREMIX 1 EACH IV SCH ×2 (00:23→12:15)
[2019-01-23 05:22] LABS: Albumin 1.5 G/DL (3.4-5.0); Bilirubin,Total 0.4 MG/DL (0.2-1.0); Calcium 7.3 MG/DL (8.5-10.1); Osmolality,Calculated 279.4 MOS/KG (273-304); Total Protein 4.3 G/DL (6.4-8.3)
[2019-01-23 05:30] LABS: Basophils % 0.3 % (0.0-0.8); Eosinophils # 0.1 10*3/uL (0.0-0.87); Eosinophils % 2.2 % (0.00-10.9); Hematocrit 27.6 VOL% (35.7-47.0); Hemoglobin 8.9 GM/DL (12.0-16.0); Immature Granulocytes % 1.4 %; Immature Granulocytes Absolute 0.05 #; Lymphocytes # 1.3 10*3/uL (1.4-4.0); Lymphocytes % 35.7 % (21.3-54.2); Mean Corpuscular HGB Conc 32.2 GM/DL (32-36); Mean Corpuscular Volume 91.7 FL (87-102); Mean Platelet Volume 10.7 FL (9.6-12.0); Monocytes % 5.6 % (1.7-12.7); Neutrophils % 54.8 % (38.7-73.9); Platelet Count 67 T/CUMM (130-400); Red Blood Count 3.01 MC/CUMM (3.8-5.5); Red Cell Distribution Width 17.2 % (9.3-17.3); White Blood Count 3.6 T/CUMM (4-12)
[2019-01-23 06:02] LABS: Anisocytosis 1+; Band Neutrophils 6 % (0-10); Lymphocytes 33 % (20-55); Segmented Neutrophils 54 % (50-85); Total Cells Counted 100
[2019-01-23 06:03] LABS: Hypochromasia 1+; Platelet Estimate Decreased
[2019-01-23] MEDS: SACUBITRIL/VALSARTAN 49-51 MG TABLET PO SCH ×2 (09:09→23:39)
[2019-01-23] MEDS: CARVEDILOL 6.25 MG TABLET PO SCH ×2 (09:10→16:21)
[2019-01-23] MEDS: ASCORBIC ACID 500 MG TABLET PO SCH ×2 (09:10→22:52)
[2019-01-23] MEDS: LANSOPRAZOLE ODT 30 MG TABLET PO SCH (09:10)
[2019-01-23] MEDS: GABAPENTIN 100 MG CAPSULE PO SCH ×3 (09:11→22:52)
[2019-01-23] MEDS: POTASSIUM CHLORIDE 20 MEQ TABLET PO PRN ×2 (09:11→10:15)
[2019-01-23] MEDS: AMIODARONE 200 MG TABLET PO SCH (09:11)
[2019-01-23] MEDS: MUPIROCIN 2% OINT 22 GM TUBE TOP SCH ×2 (09:11→23:38)
[2019-01-23] MEDS ORDERED: FUROSEMIDE 40 MG/4 ML VIAL IV ONE (09:52)
[2019-01-23] MEDS: ROSUVASTATIN 20 MG TABLET PO SCH (22:52)
[2019-01-24] MEDS: CIPROFLOXACIN INJ 400 MG in PREMIX 1 EACH IV SCH ×2 (00:51→12:18)
[2019-01-24 04:54] LABS: Basophils % 0.5 % (0.0-0.8); Eosinophils # 0.1 10*3/uL (0.0-0.87); Eosinophils % 1.7 % (0.00-10.9); Hematocrit 23.9 VOL% (35.7-47.0); Hemoglobin 9.1 GM/DL (12.0-16.0); Immature Granulocytes Absolute 0.04 #; Lymphocytes # 1.4 10*3/uL (1.4-4.0); Lymphocytes % 34.6 % (21.3-54.2); Mean Corpuscular HGB Conc 38.1 GM/DL (32-36); Mean Platelet Volume 11.2 FL (9.6-12.0); Monocytes % 6.1 % (1.7-12.7); Neutrophils % 56.1 % (38.7-73.9); Platelet Count 87 T/CUMM (130-400); Red Blood Count 2.44 MC/CUMM (3.8-5.5); Red Cell Distribution Width 20.4 % (9.3-17.3); White Blood Count 4.1 T/CUMM (4-12)
[2019-01-24 05:15] LABS: Calcium 7.7 MG/DL (8.5-10.1); Osmolality,Calculated 277.5 MOS/KG (273-304)
[2019-01-24 06:12] LABS: Band Neutrophils 4 % (0-10); Hypochromasia 1+; Lymphocytes 30 % (20-55); Platelet Estimate Decreased; Segmented Neutrophils 59 % (50-85); Total Cells Counted 100
[2019-01-24] MEDS: POTASSIUM CHLORIDE 20 MEQ TABLET PO PRN ×3 (06:13→11:48)
[2019-01-24] MEDS: GABAPENTIN 100 MG CAPSULE PO SCH ×3 (08:36→21:43)
[2019-01-24] MEDS: ASCORBIC ACID 500 MG TABLET PO SCH ×2 (08:36→21:43)
[2019-01-24] MEDS: LANSOPRAZOLE ODT 30 MG TABLET PO SCH (08:36)
[2019-01-24] MEDS: CARVEDILOL 6.25 MG TABLET PO SCH ×2 (08:37→16:00)
[2019-01-24] MEDS: AMIODARONE 200 MG TABLET PO SCH (08:37)
[2019-01-24] MEDS: FUROSEMIDE 20 MG TABLET PO SCH (08:37)
[2019-01-24] MEDS: SACUBITRIL/VALSARTAN 49-51 MG TABLET PO SCH (08:37)
[2019-01-24] MEDS: MUPIROCIN 2% OINT 22 GM TUBE TOP SCH (09:40)
[2019-01-24 12:37] LABS: Basophils % 0.2 % (0.0-0.8); Eosinophils # 0.1 10*3/uL (0.0-0.87); Eosinophils % 1.9 % (0.00-10.9); Hematocrit 26.1 VOL% (35.7-47.0); Hemoglobin 9.5 GM/DL (12.0-16.0); Immature Granulocytes % 0.9 %; Immature Granulocytes Absolute 0.04 #; Lymphocytes # 1.7 10*3/uL (1.4-4.0); Lymphocytes % 38.7 % (21.3-54.2); Mean Corpuscular HGB Conc 36.4 GM/DL (32-36); Mean Platelet Volume 10.7 FL (9.6-12.0); Monocytes % 5.9 % (1.7-12.7); Neutrophils % 52.4 % (38.7-73.9); Platelet Count 101 T/CUMM (130-400); Red Blood Count 2.56 MC/CUMM (3.8-5.5); Red Cell Distribution Width 21.8 % (9.3-17.3); White Blood Count 4.3 T/CUMM (4-12)
[2019-01-24 12:58] LABS: Band Neutrophils 6 % (0-10); Eosinophils 2 % (0-10); Lymphocytes 30 % (20-55); Segmented Neutrophils 59 % (50-85); Total Cells Counted 100
[2019-01-24 12:59] LABS: Hypochromasia Slight; Macrocytosis 1+; Polychromasia Slight
[2019-01-24] MEDS: ROSUVASTATIN 20 MG TABLET PO SCH (21:42)
[2019-01-25] MEDS: CIPROFLOXACIN INJ 400 MG in PREMIX 1 EACH IV SCH (01:00)
[2019-01-25] MEDS: MUPIROCIN 2% OINT 22 GM TUBE TOP SCH ×2 (01:21→08:50)
[2019-01-25 05:28] LABS: Basophils % 0.3 % (0.0-0.8); Eosinophils # 0.1 10*3/uL (0.0-0.87); Eosinophils % 3.1 % (0.00-10.9); Hematocrit 26.9 VOL% (35.7-47.0); Hemoglobin 9.2 GM/DL (12.0-16.0); Immature Granulocytes Absolute 0.04 #; Lymphocytes # 1.6 10*3/uL (1.4-4.0); Mean Corpuscular HGB Conc 34.2 GM/DL (32-36); Mean Corpuscular Volume 97.8 FL (87-102); Mean Platelet Volume 10.7 FL (9.6-12.0); Monocytes % 6.2 % (1.7-12.7); Neutrophils % 49.4 % (38.7-73.9); Platelet Count 105 T/CUMM (130-400); Red Blood Count 2.75 MC/CUMM (3.8-5.5); Red Cell Distribution Width 20.3 % (9.3-17.3); White Blood Count 3.9 T/CUMM (4-12)
[2019-01-25 05:45] LABS: Calcium 7.8 MG/DL (8.5-10.1); Osmolality,Calculated 274.8 MOS/KG (273-304)
[2019-01-25 05:47] LABS: Hypochromasia Slight; Platelet Estimate Decreased
[2019-01-25 05:48] LABS: Macrocytosis Slight
[2019-01-25 08:33] VITALS: BP 124/65
[2019-01-25] MEDS: FUROSEMIDE 20 MG TABLET PO SCH (08:49)
[2019-01-25] MEDS: CARVEDILOL 6.25 MG TABLET PO SCH (08:49)
[2019-01-25] MEDS: AMIODARONE 200 MG TABLET PO SCH (08:49)
[2019-01-25] MEDS: GABAPENTIN 100 MG CAPSULE PO SCH (08:49)
[2019-01-25] MEDS: LANSOPRAZOLE ODT 30 MG TABLET PO SCH (08:50)
[2019-01-25] MEDS: ASCORBIC ACID 500 MG TABLET PO SCH (08:50)
[2019-01-25] MEDS: ASPIRIN CHEW 81 MG TABLET PO SCH (08:50)
[2019-01-25] MEDS ORDERED: POTASSIUM CHLORIDE 20 MEQ TABLET PO SCH (09:00)
== END 2019-01-25 11:43 | disposition swing bed (61) | DRG 391 ==
LOC: EDBD → EDUNIT# → N.ED 10:33 → N.TELEN 10:33 → SUATTDRO 13:57 → N.TELEN 15:50 → SUATTDRO 01-16 15:23
PROVIDERS: ADMIT Hospitalist; ATTEND Emergency Medicine